=== PATIENT | female | born 1950 | race Caucasian/White ===

== ENCOUNTER → 2023-10-22 07:55 | Outpatient (REF) | payer MEDICARE, SELFPAY | LOC: DHSLP 07:55 | PROVIDERS: ATTENDING PHYSICIAN Internal Medicine; FAMILY PHYSICIAN Family Medicine | DX: G47.33 Obstructive sleep apnea (adult) (pediatric) (principal) | CPT/HCPCS: 95800 ==

== ENCOUNTER → 2023-11-26 13:24 | Outpatient (REF) | payer MEDICARE, SELFPAY ==
[2023-11-26 14:05] LABS: % Basophils 0.4 % (0-2); % Eosinophils 2.8 % (0-6); % Immature Granulocytes 0.6 % (0-0.5); % Lymphocytes 8.6 % (20.5-51.1); % Monocytes 7.4 % (1.7-9.3); % Neutrophils 80.2 % (42.2-75.2); Absolute Eosinophils 0.3 10^3/uL (0-0.7); Absolute Immature Granulocytes 0.1 10^3/uL (0-0.05); Absolute Lymphocytes 0.8 10^3/uL (1.2-3.4); Absolute Monocytes 0.7 10^3/uL (0.1-0.6); Absolute Neutrophils 7.6 10^3/uL (1.4-6.5); Hematocrit 36.1 % (37.0-47.0); Hemoglobin 11.6 g/dL (12.0-16.0); Mean Corp Hgb Conc. 32.1 g/dL (33.0-37.0); Mean Corpuscular Hgb 31.4 pg (27.0-31.0); Mean Corpuscular Volume 97.8 fL (81.0-99.0); Mean Platelet Volume 9.7 fL (7.4-10.4); Nucleated Red Blood Cells % 0 %; Platelet Count 249 10^3/uL (130-400); Red Blood Cell Count 3.69 10^6/uL (4.20-5.40); Red Cell Dist. Width 13.8 % (11.5-14.5); White Blood Cell Count 9.5 10^3/uL (4.8-10.8)
== END ==
LOC: REG 13:24
PROVIDERS: ATTENDING PHYSICIAN Internal Medicine; FAMILY PHYSICIAN Family Medicine; REFERRING PHYSICIAN Nuclear Medicine Nuclear Cardiology
DX: J44.1 Chronic obstructive pulmonary disease with (acute) exacerbation (principal)
CPT/HCPCS: 36415; 85025

== ENCOUNTER 2024-04-07 18:21 | Observation (INO) | payer MEDICARE, SELFPAY ==
[2024-04-04 10:43] LABS: Hematocrit 33.4 % (37.0-47.0); Hemoglobin 10.6 g/dL (12.0-16.0); Mean Corp Hgb Conc. 31.7 g/dL (33.0-37.0); Mean Corpuscular Hgb 31.5 pg (27.0-31.0); Mean Corpuscular Volume 99.4 fL (81.0-99.0); Mean Platelet Volume 9.7 fL (7.4-10.4); Platelet Count 259 10^3/uL (130-400); Red Blood Cell Count 3.36 10^6/uL (4.20-5.40); Red Cell Dist. Width 15.5 % (11.5-14.5); White Blood Cell Count 9.5 10^3/uL (4.8-10.8)
[2024-04-04 10:45] LABS: Urine Albumin 3+ (Neg - Trace); Urine Bilirubin Negative (Negative); Urine Character Very Cloudy (Clear); Urine Color Yellow; Urine Glucose Negative (Negative); Urine Ketone Negative (Negative); Urine Leukocyte 2+ (Negative); Urine Nitrite Negative (Negative); Urine Occult Blood 4+ (Negative); Urine Urobilinogen Negative (Neg - 1+); Urine pH 6.5 (5.0-9.0)
[2024-04-04 10:52] LABS: INR 1.17; PT 14.7 Sec (11.4-14.6)
[2024-04-04 10:53] LABS: APTT 33.4 Sec (23.4-35.0)
[2024-04-04 11:17] LABS: Urine White Cell >100 /HPF (0-5)
[2024-04-04 11:36] LABS: Blood Urea Nitrogen 53 mg/dl (7-17); Calcium 9.1 mg/dl (8.4-10.2); Carbon Dioxide 8 mmol/L (22-30); Chloride 115 mmol/L (98-107); Glucose 119 mg/dl (70-99); Potassium 4.9 mmol/L (3.5-5.1); Sodium 137 mmol/L (135-145); eGFR 10.81
[2024-04-04 12:45] VITALS: BMI 49.9
--- NOTE | 2024-04-05 10:01 | PTCARENOTE ---
Creatinine 4.1; CO2 level 8; urine WBC's >100 all collected on 04/04/24; Belen at 's office was notified.
[2024-04-07] VITALS (21 sets, daily range): BP systolic 110–158; BP diastolic 49–74
[2024-04-07 11:42] LABS: Glucose - Point of Care 103 mg/dl (70-99)
[2024-04-07] MEDS: NORMOSOL-R 1000 IV (12:25)
[2024-04-07 15:45] LABS: Hemoglobin 9.8 g/dL (12.0-16.0); Mean Corp Hgb Conc. 31.6 g/dL (33.0-37.0); Mean Corpuscular Hgb 31.1 pg (27.0-31.0); Mean Corpuscular Volume 98.4 fL (81.0-99.0); Mean Platelet Volume 9.4 fL (7.4-10.4); Platelet Count 252 10^3/uL (130-400); Red Blood Cell Count 3.15 10^6/uL (4.20-5.40); Red Cell Dist. Width 15.5 % (11.5-14.5); White Blood Cell Count 9.3 10^3/uL (4.8-10.8)
[2024-04-07 15:50] LABS: Glucose - Point of Care 97 mg/dl (70-99)
[2024-04-07 16:05] LABS: Blood Urea Nitrogen 55 mg/dl (7-17); Calcium 8.7 mg/dl (8.4-10.2); Carbon Dioxide 14 mmol/L (22-30); Chloride 116 mmol/L (98-107); Estimated Creatinine Clearance 17 ml/min; Glucose 108 mg/dl (70-99); Potassium 4.9 mmol/L (3.5-5.1); Sodium 138 mmol/L (135-145); eGFR 11.84
[2024-04-07] MEDS: TYLENOL 1000 MG PO (16:09)
--- NOTE | 2024-04-07 16:33 | PTCARENOTE ---
Patient seen by Dr Villafana and will be admitted.Dr Villafana will reach out to hospitalist for admission orders. Sister made aware.
--- NOTE | 2024-04-07 16:56 | HPS.HSE ---
Family Physician
-
Family Physician: Elsie Grubbs
Chief Complaint
-
Impaired renal function and acidosis
History of Present Illness
74 y/o female with past medical history of cervical cancer with associated urinary obstruction s/p stents, chronic Kidney Disease, UTI, Hydronephrosis, Neurogenic Bladder, Chronic HFpEF, Hypertension, Type 2 Diabetes Mellitus, Hypothyroidism,
Cervical Cancer Stage 3 status radiation and chemotherapy, Colon Polyp, Family History of Cardiovascular Disease, Edema, Benign Cavernous Hemangioma, Shingles, Post-Herpetic Neuralgia, Arthritis, Gout, Leon Cyst, Anxiety, Depression, Morbid Obesity
and SHANTEL presented post-op after bilateral ureteral stent exchange earlier today Dr. Villafana. Dr. Villafana mentioned patient had chronic kidney disease with metabolic acidosis and would like the patient admitted because of metabolic acidosis. Other than
mild headache, patient denied any other significant symptoms at the time of admission.
Medical History
Past Medical History
Past Medical History: Reports Other (As per HPI above)
Past Surgical History: Reports Other (Colonoscopy. Ureteral Stents placement. Suprapubic Tube.)
Social History
Tobacco: Non-smoker
Alcohol: None
Drug: None
Family History
Family History: Not pertinent
Allergies / Home Medications
Allergies reflects when Allergies were last updated in [facility].
Home Medications with original date entered in [facility]
Allergy/Medication List:
Allergies
Allergy/AdvReac Type Severity Reaction Status Date / Time
No Known Allergies Allergy Verified 04/07/24 11:53
Home Medications
levothyroxine 88 mcg tablet 88 mcg PO DAILY AT 0700 Thyroid 12/18/21
ascorbic acid (vitamin C) 500 mg tablet (Vitamin C) 500 mg PO DAILY Supplement 02/26/22
biotin 10,000 mcg capsule 10,000 mcg PO DAILY Supplement 02/26/22
gabapentin 100 mg capsule 200 mg PO TID Neurological Condition 02/26/22
metoprolol succinate 50 mg tablet,extended release 24 hr 50 mg PO BID 04/27/22
nystatin 100,000 unit/gram topical powder 1 applic topical PRN PRN rash 04/27/22
ferrous sulfate 325 mg (65 mg iron) tablet 325 mg PO DAILY 07/30/22
Lactobacillus 40-Bifidobact 3-S.thermophilus 100 billion cell capsule (Probiotic) 1 cap PO DAILY 09/29/22
sodium bicarbonate 650 mg PO BID 04/07/24
Review of Systems
-
A 12 point ROS was completed and negative except as noted: Yes
Physical Exam
Vital Signs
Vital Signs
Temp Pulse Resp BP Pulse Ox
97.5 F 80 27 129/56 95
04/07/24 15:05 04/07/24 16:30 04/07/24 16:30 04/07/24 16:30 04/07/24 16:30
Physical Exam
General: No Apparent Distress, Comfortable and Conversant
HEENT: NormoCephalic and Moist mucous membranes
Respiratory: Clear
Cardiac: S1/S2 and Regular Rhythm
GI: Soft, Non Tender and Normal Bowel Sounds
Musculoskeletal: No Cyanosis
Skin: Warm and Dry
Neuro: Awake, Alert, AO x 3 and Nonfocal/grossly intact
Psych: Calm and Intact Judgment/Insight
Laboratory Results
-
04/07/24 15:26
04/07/24 15:26
Laboratory Results
PT 14.7 Sec (11.4-14.6) H 04/04/24 09:58
INR 1.17 04/04/24 09:58
APTT 33.4 Sec (23.4-35.0) 04/04/24 09:58
Impression/Plan
-
Assessment/Plan
Non Anion Gap Metabolic Acidosis
-Start Sterile Water with Sodium Bicarbonate 150 meq @ 80 cc/hr -- discussed this with on-call senior cisco network engineer and okay to start this IV fluid regimen for now and monitor BMP
-Continue patient's home sodium bicarbonate
Post-Op Bilateral Ureteral Stent Exchange for Chronic Urinary Tract Obstruction with Cervical Cancer
-Urology following, recommendations appreciated
Chronic Kidney Disease
-Monitor BMP
History of UTI
History of Hydronephrosis
History of Neurogenic Bladder
-Previously a suprapubic tube was placed
Chronic HFpEF
-Continue home Metoprolol Succinate
-Daily weights
-I's and O's
Hypertension
-Continue home Metoprolol Succinate 50 mg PO BID
Type 2 Diabetes Mellitus
-Insulin Sliding Scale with accuchecks
-Per patient request, patient can have a Regular Diet for now
Hypothyroidism
-Continue home Levothyroxine
Cervical Cancer Stage 3 status radiation and chemotherapy and bracytherapy
Colon Polyp
History of Pulmonary Nodule
Family History of Cardiovascular Disease
Edema
Benign Cavernous Hemangioma
Shingles
Post-Herpetic Neuralgia
Arthritis
Gout
Leon Cyst
Anxiety
Depression
Morbid Obesity
SHANTEL
DVT Prophylaxis: Heparin Subq
Code Status: Full Code
[2024-04-07] MEDS: SODIUM BICARBONATE 1150 MEQ IV (20:17)
[2024-04-07] MEDS: HEPARIN 5000 UNITS SC (20:22)
[2024-04-07] MEDS: TOPROL XL 50 MG PO (20:24)
[2024-04-07 21:42] LABS: Glucose - Point of Care 126 mg/dl (70-99)
[2024-04-07] MEDS: NEURONTIN 200 MG PO (21:53)
[2024-04-08 03:31] VITALS: BP 129/63
[2024-04-08] MEDS: SYNTHROID 88 MCG PO (05:37)
[2024-04-08 05:53] VITALS: BMI 49.7
[2024-04-08 07:05] VITALS: BP 131/52
[2024-04-08 07:37] LABS: Glucose - Point of Care 107 mg/dl (70-99)
[2024-04-08 07:39] LABS: Hematocrit 29.3 % (37.0-47.0); Hemoglobin 9.5 g/dL (12.0-16.0); Mean Corp Hgb Conc. 32.4 g/dL (33.0-37.0); Mean Corpuscular Hgb 31.9 pg (27.0-31.0); Mean Corpuscular Volume 98.3 fL (81.0-99.0); Mean Platelet Volume 9.7 fL (7.4-10.4); Platelet Count 240 10^3/uL (130-400); Red Blood Cell Count 2.98 10^6/uL (4.20-5.40); Red Cell Dist. Width 15.4 % (11.5-14.5)
[2024-04-08 07:57] LABS: Blood Urea Nitrogen 55 mg/dl (7-17); Calcium 8.1 mg/dl (8.4-10.2); Carbon Dioxide 15 mmol/L (22-30); Chloride 113 mmol/L (98-107); Estimated Creatinine Clearance 18 ml/min; Glucose 114 mg/dl (70-99); Magnesium 1.4 mg/dl (1.6-2.3); Potassium 4.7 mmol/L (3.5-5.1); Sodium 139 mmol/L (135-145); eGFR 12.63
[2024-04-08] MEDS: VISBIOME 1 CAP PO (08:38)
[2024-04-08] MEDS: TOPROL XL 50 MG PO ×2 (08:38→20:05)
[2024-04-08] MEDS: NEURONTIN 200 MG PO ×3 (08:38→21:55)
[2024-04-08] MEDS: HEPARIN 5000 UNITS SC ×2 (08:38→20:02)
[2024-04-08] MEDS: VITAMIN C 500 MG PO (08:38)
[2024-04-08] MEDS: FEOSOL 325 MG PO (08:39)
--- NOTE | 2024-04-08 08:48 | W.PN.HOSP.TC ---
Today's Communication/Plan
-
Continue treating metabolic acidosis
Replace low magnesium
Appreciate nephrology evaluation
Appreciate urology follow-up
Assessment / Plan
Assessment / Plan
Physical Exam
General: No Apparent Distress, Comfortable and Conversant
HEENT: Normocephalic and Moist mucous membranes
Respiratory: Clear
Cardiac: S1/S2 and Regular Rhythm
GI: Soft, Non Tender and Normal Bowel Sounds
Musculoskeletal: No Cyanosis
Skin: Warm and Dry
Neuro: Awake, Alert, AO x 3 and Nonfocal/grossly intact
Psych: Calm and Intact Judgment/Insight
Assessment/Plan
Non Anion Gap Metabolic Acidosis
-Continue Sterile Water with Sodium Bicarbonate 150 meq @ 80 cc/hr -- discussed this with on-call career representative and okay to start this IV fluid regimen for now and monitor BMP
-Hold home patient's sodium bicarbonate
Hypomagnesemia
-Ordered replacement on 04/08/24
-Recheck in the morning
Post-Op Bilateral Ureteral Stent Exchange for Chronic Urinary Tract Obstruction with Cervical Cancer
-Urology following, recommendations appreciated
Chronic Kidney Disease
-Monitor BMP
History of UTI
History of Hydronephrosis
History of Neurogenic Bladder
-Previously a suprapubic tube was placed
Chronic HFpEF
-Continue home Metoprolol Succinate
-Daily weights
-I's and O's
Hypertension
-Continue home Metoprolol Succinate 50 mg PO BID
Type 2 Diabetes Mellitus
-Patient mentioned she does not use any Insulin or any Diabetes medications at home
-Insulin Sliding Scale with accuchecks
-Per patient request, patient can have a Regular Diet for now
Hypothyroidism
-Continue home Levothyroxine
Cervical Cancer Stage 3 status radiation and chemotherapy and bracytherapy
Colon Polyp
History of Pulmonary Nodule
Family History of Cardiovascular Disease
Edema
Benign Cavernous Hemangioma
Shingles
Post-Herpetic Neuralgia
Arthritis
Gout
Leon Cyst
Anxiety
Depression
Morbid Obesity
SHANTEL
DVT Prophylaxis: Heparin Subq
Code Status: Full Code
Anticipated Discharge: Within 24 hours
Subjective/Interval History
-
Date of Service: April 08, 2024
Patient was seen and examined. She reported no fever, chest pain, shortness of breath or any other symptoms or complaints.
Objective Data
-
Labs:
Laboratory Results
04/08/24
06:45
WBC 9.0
Hgb 9.5 L
Hct 29.3 L
Plt Count 240
Sodium 139
Potassium 4.7
Chloride 113 H
Carbon Dioxide 15 L
BUN 55 H
Creatinine 3.6 H
Glucose 114 H
Calcium 8.1 L
Vital Signs:
Vital Signs
Temp Pulse Resp BP Pulse Ox
98.2 F 86 18 131/52 95
04/08/24 07:05 04/08/24 08:38 04/08/24 07:05 04/08/24 08:38 04/08/24 07:05
I&O
04/07/24 04/08/24 04/09/24
06:59 06:59 06:59
Intake Total 1580 / 1580
Output Total 2024
Balance -445 / -445
--- NOTE | 2024-04-08 09:47 | CON.ONC ---
Impression
Impression
- metabolic acidosis
- acute on chronic renal injury
- hx of cervical cancer s/p chemoradiation- 12/2021-02/2022
Plan
Plan
GISEL on CKD: pt initially had issues with recurrent GISEL at time of cervical cancer diagnosis due to obstruction from mass s/p bilateral ureteral stent placement at that time. She then had GISEL after tx complete with neurogenic bladder s/p supra-pubic
catheter. New GISEL w/ acidosis possibly due to stent obstruction +/- exacerbated by new medication as Farxigo can cause a ketoacidosis (without hyperglycemia). She had stent and catheter exchanged 04/07. Cr appears to be downtrending with IVFs.
- ordered CT A/P without contrast to ensure no new pelvic mass/adenopathy causing extrinsic compression to explain worsening renal function. denies vaginal discharge, bleeding or pelvic pain. Last pelvic exam in January unremarkable.
Anemia: hx of anemia at time of diagnosis due to bleeding then developed anemia during chemoradiation however hgb eventually normalized and had been stable at 11-12 range. drop now to 9.5 g/dl possibly reflection of worsening renal disease.
- check retic, iron studies, B12. replete deficiencies if present.
Cervical cancer: s/p chemoradiation february 2022 with CR. Surveillance to date without signs or symptoms of recurrence. routine imaging is not performed for cervical cancer after CR. will check CT A/P now to ensure no pelvic recurrence.
Patient History
History of Present Illness
Tori is a 74 yo F with hx of stage IIIC cervical cancer s/p chemoradiation 02/2022 with CR, in remission, bilateral ureteral obstruction s/p stents, urinary retention s.p suprapubic catheter who presented after stent exchange 04/07 with acute on
chronic renal injury and metabolic acidosis. Labs from 04/04 shows rise in Cr at 4.1 from most recent in my system of 1.98 in January, Carbon dioxide 8. Cr appears to be improving 3.6 today. Oncology consulted for hx of cervical cancer.
In regards to oncological hx, Tori was diagnosed in november 2021 when she was admitted to OSH with malaise, hematuria. imaging showed severe bilateral hydronephrosis extending down to the level of the uterine cervix with a lobulated mass measuring
7.6�6.7 cm within the uterine cervix. Minimal left perinephric fat stranding with mild perinephritic and urinary bladder edema, mildly enlarged left external iliac chain lymph node otherwise no metastatic adenopathy. she was seen by urology and
underwent bilateral ureteral stent placement. She was treated with up front chemoradiation which she completed in February 2022. Her post-tx PET was consistent with CR and she has been under surveillance since with pelvic exam every 3 months with
Tina. After completing treatment she developed issues with urinary retention thought to be from neurogenic bladder and had suprapubic catheter placed. She follows with Dr Reid from nephrology who started her on in February due to CKD and DM.
This was stopped ~ 1.[address] Reid noted rise in Cr. She notes feeling weak the week leading up to stent exchange. denies fevers, chills, pelvic pain, sob, chest pain, new back or bone pain
Past-Medical/Surgical History
- Stage III cervical cancer
- obstructive nephropathy s/p bilateral ureteral stents, suprapubic catheter
- type 2 DM
- obesity
- HTN
Patient Medication
�Medication �Instructions �Recorded �Confirmed �Last Taken �Type
levothyroxine 88 mcg tablet 88 mcg PO DAILY AT 0700 Thyroid 12/18/21 04/07/24 04/07/24 06:00 History
ascorbic acid (vitamin C) 500 mg 500 mg PO DAILY Supplement 02/26/22 04/07/24 1 Week Ago History
tablet (Vitamin C) ~03/31/24
biotin 10,000 mcg capsule 10,000 mcg PO DAILY Supplement 02/26/22 04/07/24 1 Week Ago History
~03/31/24
gabapentin 100 mg capsule 200 mg PO TID Neurological 02/26/22 04/07/24 04/07/24 08:00 History
Condition
metoprolol succinate 50 mg 50 mg PO BID 04/27/22 04/07/24 04/07/24 08:00 History
tablet,extended release 24 hr
nystatin 100,000 unit/gram topical 1 applic topical PRN PRN rash 04/27/22 04/07/24 1 Week Ago History
powder ~03/31/24
ferrous sulfate 325 mg (65 mg 325 mg PO DAILY 07/30/22 04/07/24 1 Week Ago History
iron) tablet ~03/31/24
Lactobacillus 40-Bifidobact 1 cap PO DAILY 09/29/22 04/07/24 1 Week Ago History
3-S.thermophilus 100 billion cell ~03/31/24
capsule (Probiotic)
sodium bicarbonate 650 mg PO BID 04/07/24 04/07/24 04/07/24 08:00 History
Active Medications
Generic Name Dose Route Start Last Admin
Trade Name Freq PRN Reason Stop Dose Admin
Ascorbic Acid 500 mg 04/08/24 08:00 04/08/24 08:38
Ascorbic Acid 500 Mg Tablet PO 05/06/24 07:59 500 mg
DAILY NATHAN Administration
Bisacodyl 10 mg 04/07/24 18:00
Bisacodyl 10 Mg Rectal Suppository RECTAL 05/05/24 17:59
[id number] PRN
constipation
Dextrose 12.5 grams 04/07/24 18:03
Dextrose 50% (0.5 Grams/Ml) 50 Ml Syringe IV 05/05/24 18:02
[id number] PRN
hypoglycemia
Protocol
Ferrous Sulfate 325 mg 04/08/24 08:00 04/08/24 08:39
Ferrous Sulfate 325 Mg Tablet PO 05/06/24 07:59 325 mg
DAILY NATHAN Administration
Gabapentin 200 mg 04/07/24 22:00 04/08/24 08:38
Gabapentin 100 Mg Capsule PO 05/05/24 21:59 200 mg
TID NATHAN Administration
Glucagon 1 mg 04/07/24 18:03
Glucagon 1 Mg Vial IM 05/05/24 18:02
PRN PRN
hypoglycemia
Protocol
Heparin Sodium 5,000 units 04/07/24 20:00 04/08/24 08:38
Heparin 5,000 Units/Ml 1 Ml Vial SC 05/05/24 19:59 5,000 units
Q12 NATHAN Administration
Hydromorphone HCl 0.25 mg 04/07/24 11:25
Hydromorphone 0.25 Mg/0.5 Ml Syringe IV 04/08/24 11:25
[id number] PRN
severe pain
Sodium Bicarbonate 150 meq/ 1,150 mls @ 80 mls/hr 04/07/24 18:00 04/07/24 20:17
Sterile Water IV 04/08/24 17:59 1,150 mls
[id number] NATHAN Administration
Insulin Aspart 0 units 04/08/24 07:30 04/08/24 08:37
Insulin Aspart Low Resistance 300 Units/3 Ml Pen.Injctr SC 05/06/24 07:29 Not Given
AC NATHAN
Protocol
Lactobacillus/Bifidobacterium 1 cap 04/08/24 08:00 04/08/24 08:38
Lactobac/Bifidobac (Visbiome) PO 05/06/24 07:59 1 cap
DAILY NATHAN Administration
Levothyroxine Sodium 88 mcg 04/08/24 06:00 04/08/24 05:37
Levothyroxine 88 Mcg Tablet PO 05/06/24 05:59 88 mcg
DAILY @ 0600 NATHAN Administration
Meperidine HCl 12.5 mg 04/07/24 11:25
Meperidine 25 Mg/Ml Injection IV 04/08/24 11:25
[id number] PRN
shivers
Metoprolol Succinate 50 mg 04/07/24 20:00 04/08/24 08:38
Metoprolol 50 Mg Extended Release Tablet PO 05/05/24 19:59 50 mg
BID NATHAN Administration
Miconazole Nitrate 0 applic 04/07/24 18:28
Miconazole Powder Bottle TOPICAL 05/05/24 18:27
BIDPRN PRN
rash
Morphine Sulfate 1 mg 04/07/24 11:25
Morphine 2 Mg/Ml Syringe IV 04/08/24 11:25
PACU-Q5MPRN PRN
moderate pain
Ondansetron HCl 4 mg 04/07/24 11:25
Ondansetron 4 Mg/2 Ml Vial IV 04/08/24 11:25
PACU-ONCEPRN PRN
nausea/vomiting
Polyethylene Glycol 17 grams 04/07/24 18:00
Polyethylene Glycol Powder 17 Grams Packet PO 05/05/24 17:59
DAILYPRN PRN
constipation
Prochlorperazine Edisylate 5 mg 04/07/24 11:25
Prochlorperazine 10 Mg/2 Ml Vial IV 04/08/24 11:25
PACU-ONCEPRN PRN
nausea/vomiting
Senna/Docusate Sodium 1 tablet 04/07/24 18:00
Docusate W/Senna (Cinthya-Colace) Tablet PO 05/05/24 17:59
BIDPRN PRN
constipation
Sodium Chloride 0 flush 04/07/24 06:00
Sodium Chloride 0.9% (Flush) Syringe IV 05/05/24 05:59
PER PROTOCOL NATHAN
Review of Systems
-
History Source: Patient
Constitutional: Reports Fatigue and Weakness; Denies Fever
Respiratory: Denies Cough or Trouble Breathing
Cardiac: Denies Chest Pain
GI: Denies Abdominal Pain, Nausea, Diarrhea, Constipated or Bloody Stools
: Denies Vaginal Discharge or Vaginal Bleeding
Neuro: Denies Dizzy or Headache
Physical Exam
-
General: Well Developed, Well Nourished, No Apparent Distress and Morbidly Obese
HEENT: Negative Jaundice
Cardiology: Normal Sinus Rhythm
Pulmonary: Clear
GI: Soft; Negative Distended
Musculoskeletal: No Edema
Neurology: Non Focal
Psych: Calm
Labs
Lab Results
WBC 9.0 10^3/uL (4.8-10.8) 04/08/24 06:45
RBC 2.98 10^6/uL (4.20-5.40) L 04/08/24 06:45
Hgb 9.5 g/dL (12.0-16.0) L 04/08/24 06:45
Hct 29.3 % (37.0-47.0) L 04/08/24 06:45
MCV 98.3 fL (81.0-99.0) 04/08/24 06:45
MCH 31.9 pg (27.0-31.0) H 04/08/24 06:45
MCHC 32.4 g/dL (33.0-37.0) L 04/08/24 06:45
RDW 15.4 % (11.5-14.5) H 04/08/24 06:45
Plt Count 240 10^3/uL (130-400) 04/08/24 06:45
MPV 9.7 fL (7.4-10.4) 04/08/24 06:45
Creatinine 3.6 mg/dL (0.6-1.0) H 04/08/24 06:45
Vital Signs
Vital Signs
Temp Pulse Resp BP Pulse Ox
98.2 F 86 18 131/52 95
04/08/24 07:05 04/08/24 08:38 04/08/24 07:05 04/08/24 08:38 04/08/24 07:05
[2024-04-08] MEDS: MAGNESIUM SULFATE 102 GRAMS IV (10:06)
[2024-04-08 10:42] LABS: Glucose - Point of Care 122 mg/dl (70-99)
--- NOTE | 2024-04-08 10:45 | CM ---
Initial assessment completed with patient who lives alone in a 1st floor 1 floor condo with ramp. She has a rollator which she uses and a SC and grab bars in bathroom. 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
through [employer]. They provide assist with chores and transport to appointments. No history of psychiatric hospitalizations. Pharmacy is [facility] on [address] in [place] and PCP is Dr. Elsie Grubbs. YING explained and signed. Anticipate no
needs at discharge.
[2024-04-08 11:00] VITALS: BP 130/52
[2024-04-08] MEDS: SODIUM BICARBONATE 1150 MEQ IV (11:10)
[2024-04-08 12:24] LABS: Glucose - Point of Care 98 mg/dl (70-99)
--- NOTE | 2024-04-08 12:47 | W.CON.NEPH ---
Consultation
-
Date/Time Consultation Requested: 04/07/2024 16:53
Date/Time Consultation Performed: 04/08/2024 12:47PM
Requesting Provider: Sameer Saenz
Performing Provider: Leonora Moran
Reason for Consultation: acidosis
Medical History
-
Chief Complaint: acidosis
History of Present Illness:
Ms. Gurrola is a 74YOF with PMH of T2DM, hypothyroidism, obesity, HTN, shingles, HFpEF, CKD IV, cervical cancer with associated urinary obstruction, chronic bilateral hydro with hx of percutaneous neph tubes and now stent placement, colonic polyps,
shingles c/b post herpetic neuralgia, morbid obesity who presents to the hospital post op after bilateral ureteral stent exchange. Patient was noted to have significant acidosis (has occurred in the past) and was admitted for management of this.
Nephrology is consulted for her acidosis
She is followed by Dr. Reid in the outpatient setting.
Past Medical History
cervical cancer with associated urinary obstruction s/p stents, chronic Kidney Disease, UTI, Hydronephrosis, Neurogenic Bladder, Chronic HFpEF, Hypertension, Type 2 Diabetes Mellitus, Hypothyroidism, Cervical Cancer Stage 3 status radiation and
chemotherapy, Colon Polyp, Family History of Cardiovascular Disease, Edema, Benign Cavernous Hemangioma, Shingles, Post-Herpetic Neuralgia, Arthritis, Gout, Leon Cyst, Anxiety, Depression, Morbid Obesity and SHANTEL
Past Medical History: Other
Past Surgical History: Other (Colonoscopy. Ureteral Stents placement. Suprapubic Tube)
Social History
Tobacco: Non-Smoker
Alcohol: Occasional
Drug: None
Living: With Family
Family History
Family History: Not Pertinent
Allergies / Home Medications
Allergy/AdvReac Type Severity Reaction Status Date / Time
No Known Allergies Allergy Verified 04/07/24 11:53
�Medication �Instructions �Recorded �Confirmed �Type
levothyroxine 88 mcg tablet 88 mcg PO DAILY AT 0700 Thyroid 12/18/21 04/07/24 History
ascorbic acid (vitamin C) 500 mg 500 mg PO DAILY Supplement 02/26/22 04/07/24 History
tablet (Vitamin C)
biotin 10,000 mcg capsule 10,000 mcg PO DAILY Supplement 02/26/22 04/07/24 History
gabapentin 100 mg capsule 200 mg PO TID Neurological 02/26/22 04/07/24 History
Condition
metoprolol succinate 50 mg 50 mg PO BID Heart 04/27/22 04/07/24 History
tablet,extended release 24 hr Disease/Condition
nystatin 100,000 unit/gram topical 1 applic topical PRN PRN rash 04/27/22 04/07/24 History
powder
ferrous sulfate 325 mg (65 mg 325 mg PO DAILY Supplement 07/30/22 04/07/24 History
iron) tablet
Lactobacillus 40-Bifidobact 1 cap PO DAILY 09/29/22 04/07/24 History
3-S.thermophilus 100 billion cell
capsule (Probiotic)
sodium bicarbonate 650 mg PO BID 04/07/24 04/07/24 History
Review of Systems
-
History Source: Patient
All other systems: Negative unless noted
Physical Exam
Vital Signs
Vital Signs
Temp Pulse Resp BP Pulse Ox
98.7 F 79 18 130/52 94
04/08/24 11:00 04/08/24 11:00 04/08/24 11:00 04/08/24 11:00 04/08/24 11:00
Lab Results
WBC 9.0 10^3/uL (4.8-10.8) 04/08/24 06:45
RBC 2.98 10^6/uL (4.20-5.40) L 04/08/24 06:45
Hgb 9.5 g/dL (12.0-16.0) L 04/08/24 06:45
Hct 29.3 % (37.0-47.0) L 04/08/24 06:45
Plt Count 240 10^3/uL (130-400) 04/08/24 06:45
Sodium 139 mmol/L (135-145) 04/08/24 06:45
Potassium 4.7 mmol/L (3.5-5.1) 04/08/24 06:45
Chloride 113 mmol/L (98-107) H 04/08/24 06:45
Carbon Dioxide 15 mmol/L (22-30) L 04/08/24 06:45
BUN 55 mg/dl (7-17) H 04/08/24 06:45
Creatinine 3.6 mg/dL (0.6-1.0) H 04/08/24 06:45
eGFR 12.63 04/08/24 06:45
Glucose 114 mg/dl (70-99) H 04/08/24 06:45
Calcium 8.1 mg/dl (8.4-10.2) L 04/08/24 06:45
Physical Exam
General: AOx3, No Distress and Nontoxic
HEENT: PERRL, EOMI, Anicteric, Conjunctivae Clear, Ear/Nose Intact, Hearing Normal, Oropharynx Clear/Moist, Dentition Intact, Facial Symmetry, Neck Supple, Trachea Midline, No JVD and No Thyromegaly
Respiratory: Clear, Normal Excursion and Nonlabored Respirations
Cardiac: S1/S2, Regular Rate/Rhythm and No Edema
Breast: Deferred by me
Abdomen: Soft, Nontender, Nondistended, Normal Bowel Sounds and No Hepatosplenomegaly
Rectal: Deferred by Provider
Genito-urinary: Turbid Urine
Musculoskeletal: No Clubbing, No Cyanosis and No Edema
Skin: No Rash, Warm, Dry, No Clubbing, No Cyanosis, Normal Turgor and No Bruising
Neuro: Nonfocal/Grossly Intact
Hematologic/Lymphatic: No Cervical Lymphadenopathy
Psych: Mood/afflect pleasant, Insight/judgement good and Appropriate
Data Reviewed
-
Radiology: Report Reviewed by me (retrograde pyelogram completed. Fluoroscopic guided exchange of double-J ureteral stents, as above.) and Discussed with Patient
Labs: Labs Reviewed by me and Discussed with Physician
Old Records: Reviewed
Assessment/Plan
-
Assessment:
- metabolic acidosis
- s/p stent exchange
- HTN
- DM2
- HFpEF
Plan:
- continue IV sodium bicarb to correct acidosis
- bicarb deficit of atleast 464, will take a while to correct with just IVF
- give an amp of bicarb today
- Cr improving with fluids and stnet exchange
- follow BMP
- monitor I/Os
[2024-04-08 13:00] LABS: Reticulocyte Count 1.8 % (0.4-2.8)
[2024-04-08] MEDS: SODIUM BICARBONATE 50 MEQ IV (13:08)
--- NOTE | 2024-04-08 13:09 | W.PN.URO.CBU ---
Today's Communication / Plan
-
Trend renal function
Nephrology recs
CT pending
Assessment / Plan
-
74F with neurogenic bladder, urinary retention, and bilateral ureteral obstruction s/p pelvic radiation
Managed with suprapubic tube and bilateral metal ureteral stents
Recently worsening renal function
admitted for metabolic acidosis following bilateral stent placement and bladder botox, bladder biopsy
- Renal function improving some post stent exchange. R ureter especially seemed obstructed at time of change
- Maintain SP tube
- Will eval persistent hydro on CT ordered by oncology
- Bladder wall papillary changes likely inflammatory due to stents, but took a biopsy 04/07 - path pending
Diagnosis
-
Date of Service: April 08, 2024
-
Patient Diagnosis:
Bilateral ureteral obstruction
Neurogenic bladder with reflux s/p suprapubic tube
GISEL on CKD
Metabolic acidosis
Post Op Day:
Subjective
-
No events
Objective
-
Vital Signs
Temp Pulse Resp BP Pulse Ox
98.7 F 79 18 130/52 94
04/08/24 11:00 04/08/24 11:00 04/08/24 11:00 04/08/24 11:00 04/08/24 11:00
Intake and Output
04/07/24 04/08/24 04/09/24
06:59 06:59 06:59
Intake Total 1580 / 1580
Output Total 2024
Balance -445 / -445
Intake:
Oral fluids 520 / 520
IV fluids (Total) 1060 / 1060
Noemosol 100 / 100
Output:
Suprapubic output 2024
Laboratory Results
04/08/24 06:45
04/08/24 06:45
Physical Exam
-
General - well developed, well nourished, no acute distress
Chest - clear
Abdomen - soft, non-tender, SPT in place mild hematuria
Skin - warm & dry with no rash
Neuro - AOx3, no motor deficits
Extremities - no clubbing, no cyanosis, no edema
[2024-04-08] MEDS: OMNIPAQUE 50 ML PO (13:17)
[2024-04-08 14:10] LABS: Vitamin B12 554 pg/ml (239-931)
[2024-04-08 15:00] VITALS: BP 144/80
[2024-04-08 15:00] LABS: Total Iron Binding Capacity 183 ug/dl (265-497)
[2024-04-08 16:47] LABS: Glucose - Point of Care 120 mg/dl (70-99)
[2024-04-08 18:27] VITALS: BMI 49.7
[2024-04-08 19:44] VITALS: BP 138/63
[2024-04-08 21:18] LABS: Glucose - Point of Care 119 mg/dl (70-99)
[2024-04-08 23:24] VITALS: BP 131/67
[2024-04-09 03:27] VITALS: BP 129/61
[2024-04-09] MEDS: SYNTHROID 88 MCG PO (05:31)
[2024-04-09] MEDS: TYLENOL 650 MG PO (05:31)
[2024-04-09 06:00] VITALS: BMI 49.6
[2024-04-09 06:49] LABS: Hematocrit 28.6 % (37.0-47.0); Hemoglobin 9.3 g/dL (12.0-16.0); Mean Corp Hgb Conc. 32.5 g/dL (33.0-37.0); Mean Corpuscular Hgb 31.3 pg (27.0-31.0); Mean Corpuscular Volume 96.3 fL (81.0-99.0); Mean Platelet Volume 9.7 fL (7.4-10.4); Platelet Count 232 10^3/uL (130-400); Red Blood Cell Count 2.97 10^6/uL (4.20-5.40); Red Cell Dist. Width 15.2 % (11.5-14.5); White Blood Cell Count 8.1 10^3/uL (4.8-10.8)
[2024-04-09 07:12] LABS: Blood Urea Nitrogen 51 mg/dl (7-17); Calcium 8.3 mg/dl (8.4-10.2); Carbon Dioxide 21 mmol/L (22-30); Chloride 110 mmol/L (98-107); Estimated Creatinine Clearance 20 ml/min; Glucose 109 mg/dl (70-99); Magnesium 1.4 mg/dl (1.6-2.3); Potassium 4.4 mmol/L (3.5-5.1); Sodium 139 mmol/L (135-145); eGFR 14.55
[2024-04-09 07:28] LABS: Glucose - Point of Care 121 mg/dl (70-99)
[2024-04-09 07:42] VITALS: BP 137/62
[2024-04-09] MEDS: FEOSOL 325 MG PO (09:07)
[2024-04-09] MEDS: VITAMIN C 500 MG PO (09:07)
[2024-04-09] MEDS: HEPARIN 5000 UNITS SC (09:07)
[2024-04-09] MEDS: VISBIOME 1 CAP PO (09:07)
[2024-04-09] MEDS: TOPROL XL 50 MG PO (09:07)
[2024-04-09] MEDS: NEURONTIN 200 MG PO ×2 (09:07→15:49)
--- NOTE | 2024-04-09 09:36 | W.PN.URO.CBU ---
Today's Communication / Plan
-
Follow up 4 weeks for tube change
Will repeat BMP prior
Assessment / Plan
-
74F with neurogenic bladder, urinary retention, and bilateral ureteral obstruction s/p pelvic radiation
Managed with suprapubic tube and bilateral metal ureteral stents
Recently worsening renal function
admitted for metabolic acidosis following bilateral stent placement and bladder botox, bladder biopsy
- Renal function improving some post stent exchange. R ureter especially seemed obstructed at time of change
- Maintain SP tube
- CT ordered by oncology showed persistent bilateral hydronephrosis, though renal function improving. Discussed again today with patient she may need to go back to nephrostomy tubes, but okay to monitor for now and see where creatinine nadirs
- Bladder wall papillary changes likely inflammatory due to stents, but took a biopsy 04/07 - path pending
Stable for discharge from standpoint
Follow up 4 weeks for suprapubic tube change and repeat BMP prior
Diagnosis
-
Date of Service: April 09, 2024
-
Patient Diagnosis:
Bilateral ureteral obstruction
Neurogenic bladder with reflux s/p suprapubic tube
GISEL on CKD
Metabolic acidosis
Post Op s/p ureteral stent exchange, bladder botox, bladder biopsy
Subjective
-
Feeling better today
labs improved
Objective
-
Vital Signs
Temp Pulse Resp BP Pulse Ox
98.5 F 81 18 137/62 92
04/09/24 07:42 04/09/24 07:42 04/09/24 07:42 04/09/24 09:07 04/09/24 07:42
Intake and Output
04/08/24 04/09/24 04/10/24
06:59 06:59 06:59
Intake Total 1580 / 1580 1200 / 1200
Output Total 2024 3225 / 3225
Balance -445 / -445 -2024
Intake:
Oral fluids 520 / 520 1200 / 1200
IV fluids (Total) 1060 / 1060
Noemosol 100 / 100
Output:
Urine, Voided 1374 / 137
Suprapubic output 2024 1850 / 185
Other:
Number of unmeasured liquid
stools
Rectum 2
Laboratory Results
04/09/24 05:48
04/09/24 05:48
Physical Exam
-
General - well developed, well nourished, no acute distress
Chest - clear
Abdomen - soft, non-tender
SPT in place, clear urine
Rectal - normal
Skin - warm & dry with no rash
[2024-04-09] MEDS: MAGNESIUM SULFATE 50 IV (10:30)
--- NOTE | 2024-04-09 10:32 | W.PN.HOSP.TC ---
Today's Communication/Plan
-
Okay for discharge today, as discussed and agreed with oncologist, urologist and v[facility] cardiovascular service line
IV Magnesium this morning
Recheck magnesium this afternoon and if level is okay, can discharge
Assessment / Plan
Assessment / Plan
Physical Exam
General: Not in acute distress
HEENT: Normocephalic and Moist mucous membranes
Respiratory: Clear to Auscultation Bilaterally
Cardiac: S1/S2 and Regular Rhythm
GI: Soft, Non Tender and Normal Bowel Sounds
Skin: Warm and Dry
Neuro: Awake, Alert, AO x 3 and Nonfocal/grossly intact
Psych: Calm and Intact Judgment/Insight

CT Abdomen/Pelvis Without IV Contrast (as per radiologist's report)
IMPRESSION:
1).There is severe bilateral hydronephrosis despite bilateral double-J ureteral stents which appear to be in satisfactory position with their proximal loops coiled in the pelvicalyceal systems and distal loops coiled in the urinary bladder
There is a suprapubic catheter in the nondistended urinary bladder
2). Stable 5 mm pulmonary nodule at the posterior right lung base
3). Multilevel lumbar degenerative disc disease
4). Stable 1.5 cm left adrenal mass consistent with adrenal adenoma

Assessment/Plan
Metabolic Acidosis - RESOLVED
-Status post Sterile Water with Sodium Bicarbonate 150 meq @ 80 cc/hr -- discussed this with on-call vp cardiovascular service line and okay to start this IV fluid regimen for now and monitor BMP
-Resume home patient's sodium bicarbonate
Hypomagnesemia
-Ordered replacement on 04/08/24
-Still 1.4 on 04/09/24 morning
-Ordered additonal IV Magnesium
-Will likely need PO Magnesium on discharge
Post-Op Bilateral Ureteral Stent Exchange for Chronic Urinary Tract Obstruction with Cervical Cancer and Pelvic Radiation
-Urology following, recommendations appreciated
Chronic Kidney Disease
-Monitor BMP
History of UTI
History of Hydronephrosis
Neurogenic Bladder
-Continue suprapubic tube
-Follow-up with urology
Chronic HFpEF
-Continue home Metoprolol Succinate
-Daily weights
-I's and O's
Hypertension
-Continue home Metoprolol Succinate 50 mg PO BID
Type 2 Diabetes Mellitus
-Patient mentioned she does not use any Insulin or any Diabetes medications at home
-Insulin Sliding Scale with accuchecks
-Per patient request, patient can have a Regular Diet for now
Hypothyroidism
-Continue home Levothyroxine
Normocytic Anemia
-Follow-up with control systems drafting officer/oncologist
-Recheck Vitamin B12, Iron Studies, Retic count
Cervical Cancer Stage 3 status radiation and chemotherapy and bracytherapy
Colon Polyp
History of Pulmonary Nodule
Family History of Cardiovascular Disease
Edema
Benign Cavernous Hemangioma
Shingles
Post-Herpetic Neuralgia
Arthritis
Gout
Leon Cyst
Anxiety
Depression
Morbid Obesity
SHANTEL
DVT Prophylaxis: Heparin Subq
Code Status: Full Code
More than 30 minutes spent in discharge including
Final examination of the patient
Summarizing hospital stay
Instructions for continuing care to all relevant caregivers
Preparation of discharge records, prescriptions, and referral forms
Total time spent (in minutes): 38
Anticipated Discharge: Today
Subjective/Interval History
-
Date of Service: April 09, 2024
Patient was seen and examined. She reported no pain or any other symptoms/complaints. She stated that she really wants to go home today.
Objective Data
-
Labs:
Laboratory Results
04/09/24
05:48
WBC 8.1
Hgb 9.3 L
Hct 28.6 L
Plt Count 232
Sodium 139
Potassium 4.4
Chloride 110 H
Carbon Dioxide 21 L
BUN 51 H
Creatinine 3.2 H
Glucose 109 H
Calcium 8.3 L
Vital Signs:
Vital Signs
Temp Pulse Resp BP Pulse Ox
98.5 F 81 18 137/62 92
04/09/24 07:42 04/09/24 07:42 04/09/24 07:42 04/09/24 09:07 04/09/24 07:42
I&O
04/08/24 04/09/24 04/10/24
06:59 06:59 06:59
Intake Total 1580 / 1580 1200 / 1200
Output Total 2024 / 3224
Balance -445 / -445 -2024
--- NOTE | 2024-04-09 11:12 | W.PN.ONC2 ---
Today's Communication / Plan
-
- mild improvement in Cr today. will follow up with nephrology, urology outpt
- CT A/P without evidence of cancer recurrence, reviewed with pt.
- ok for d/c.
Impression
Impression
- metabolic acidosis
- acute on chronic renal injury
- hx of cervical cancer s/p chemoradiation- 12/2021-02/2022
Plan
Plan
GISEL on CKD: pt initially had issues with recurrent GISEL at time of cervical cancer diagnosis due to obstruction from mass s/p bilateral ureteral stent placement at that time. She then had GISEL after tx complete with neurogenic bladder s/p supra-pubic
catheter. New GISEL w/ acidosis possibly due to stent obstruction +/- exacerbated by new medication as Farxigo can cause a ketoacidosis (without hyperglycemia). She had stent and catheter exchanged 04/07. Cr appears to be downtrending with IVFs.
- CT A/P without contrast without c/f malignancy recurrence. persistent bilateral hydronephrosis despite stents noted. Pt is very reluctant to PCNs (had prior). Plan to continue to monitor as Cr does seem to be improving.
Anemia: hx of anemia at time of diagnosis due to bleeding then developed anemia during chemoradiation however hgb eventually normalized and had been stable at 11-12 range. drop now to 9.5 g/dl possibly reflection of worsening renal disease.
- work-up c/w anemia of inflammation with high ferritin. B12, folate normal. continue to monitor outpt.
Cervical cancer: s/p chemoradiation february 2022 with CR. Surveillance to date without signs or symptoms of recurrence. routine imaging is not performed for cervical cancer after CR. CT A/P w/ no pelvic recurrence.
- routine follow up scheduled with me in office.
Subjective/Objective
Chief Complaint
GISEL on CKD, hx of cervical cancer
Subjective
pt with no new complaints today. Denies fevers, chills. He has good outpt from supra-pubic tube.
Vital Signs:
Vital Signs
Temp Pulse Resp BP Pulse Ox
98.5 F 81 18 137/62 92
04/09/24 07:42 04/09/24 07:42 04/09/24 07:42 04/09/24 09:07 04/09/24 07:42
Lab Results:
Laboratory Data
WBC 8.1 10^3/uL (4.8-10.8) 04/09/24 05:48
Hgb 9.3 g/dL (12.0-16.0) L 04/09/24 05:48
Plt Count 232 10^3/uL (130-400) 04/09/24 05:48
PT 14.7 Sec (11.4-14.6) H 04/04/24 09:58
INR 1.17 04/04/24 09:58
APTT 33.4 Sec (23.4-35.0) 04/04/24 09:58
eGFR 14.55 04/09/24 05:48
Physical Exam
HEENT: No Jaundice
Cardiology: Normal Sinus Rhythm
Pulmonary: Clear
GI: Soft; No Distended
Neuro: Non Focal
Review of Systems
Review of Systems
Constitutional: Denies Fever or Fatigue
Respiratory: Denies Dyspnea
Gastrointestinal: Denies Nausea/Vomiting
Orders
Orders
Orders From Last 24 Hours
04/08/24 12:09
CT Abd/pelvis Wo Iv Cont Routine
04/08/24 12:45
Ferritin Routine
Reticulocyte Count Routine
Total Iron Binding Routine
Vitamin B12 Routine
Iohexol [Omnipaque] 50 ml PO ONCE@1245 ONE
[2024-04-09 11:22] VITALS: BP 104/63
--- NOTE | 2024-04-09 11:33 | W.PN.NEPH.PH ---
Today's Communication / Plan
-
- for dc
Assessment/Plan
-
Assessment:
- metabolic acidosis
- s/p stent exchange
- HTN
- DM2
- HFpEF
Plan:
- d/c bicarb gtt
- she is almost at bicarb goal of 22
- please discharge with 1300mg TID of bicarb
- Cr improving with fluids and stent exchange
- follow BMP with plans for BMP on Wednesday for Dr. Reid
- monitor I/Os
-
-
Date of Service: April 09, 2024
CC / HPI / ROS
-
Chief Complaint:
acidosis
History of Present Illness:
metabolic acidosis in the setting of CKD
GISEL
Review of Systems:
acidosis improved
Cr improving
Labs
-
Labs:
WBC 8.1 10^3/uL (4.8-10.8) 04/09/24 05:48
RBC 2.97 10^6/uL (4.20-5.40) L 04/09/24 05:48
Hgb 9.3 g/dL (12.0-16.0) L 04/09/24 05:48
Hct 28.6 % (37.0-47.0) L 04/09/24 05:48
Plt Count 232 10^3/uL (130-400) 04/09/24 05:48
Sodium 139 mmol/L (135-145) 04/09/24 05:48
Potassium 4.4 mmol/L (3.5-5.1) 04/09/24 05:48
Chloride 110 mmol/L (98-107) H 04/09/24 05:48
Carbon Dioxide 21 mmol/L (22-30) L 04/09/24 05:48
BUN 51 mg/dl (7-17) H 04/09/24 05:48
Creatinine 3.2 mg/dL (0.6-1.0) H 04/09/24 05:48
eGFR 14.55 04/09/24 05:48
Glucose 109 mg/dl (70-99) H 04/09/24 05:48
Calcium 8.3 mg/dl (8.4-10.2) L 04/09/24 05:48
Physical Exam
-
Vital Signs:
Vital Signs
Temp Pulse Resp BP Pulse Ox
98.0 F 78 18 104/63 94
04/09/24 11:22 04/09/24 11:22 04/09/24 11:22 04/09/24 11:22 04/09/24 11:22
Cardiovascular:: Regular rate and rhythm
Respiratory:: Bilateral: CTA
Lung Excursion:: Normal
Abdomen:: Nontender and Soft
Bowel Sounds:: Normal
Extremity Edema:: +1: Bilateral:
Anderson Catheter: Yes
[2024-04-09 12:07] VITALS: BP 131/67; BP 143/66; PULSE 74; O2SAT 94
[2024-04-09 12:22] LABS: Glucose - Point of Care 114 mg/dl (70-99)
[2024-04-09 14:28] LABS: Magnesium 1.9 mg/dl (1.6-2.3)
--- NOTE | 2024-04-09 14:46 | CHAP ---
Ms. Gurrola was in good spirits during our visit at 9:45 today. Emotional and spiritual support provided.
--- NOTE | 2024-04-09 15:12 | W.DS.TRANS ---
DC Summary - Net [employer]
-
Discharge Instructions:
Discharge Diagnosis/Procedures Metabolic Acidosis - RESOLVED
Hypomagnesemia
Post-Op Bilateral Ureteral Stent Exchange for
Chronic Urinary Tract Obstruction with Cervical
Cancer and Pelvic Radiation
Chronic Kidney Disease
History of Urinary Tract Infection
History of Hydronephrosis
Neurogenic Bladder
Chronic HFpEF
Hypertension
Type 2 Diabetes Mellitus
Hypothyroidism
Normocytic Anemia
Cervical Cancer Stage 3 status radiation and
chemotherapy and brachytherapy
Colon Polyp
History of Pulmonary Nodule
Family History of Cardiovascular Disease
Edema
Benign Cavernous Hemangioma
Shingles
Post-Herpetic Neuralgia
Arthritis
Gout
Elon Cyst
Anxiety
Depression
Morbid Obesity
Obstructive Sleep Apnea
Diet Diabetic, Carb Controlled,Low Sodium,Low Fiber,
Low Cholesterol,Low Fat,Restrict fluids to 64 oz
Activity As tolerated
Blood Work Recheck CBC, BMP and Magnesium in 2 days from
now with your it systems analyst, Dr. Reid
Specialty Instructions Weigh Daily
Instructions: Hypomagnesemia
Stand-Alone Forms:
Changes to Home Medications: Yes
Discharge Medications:
DC Medications w/original date entered in [employer]
levothyroxine 88 mcg tablet 88 mcg PO DAILY AT 0700 Thyroid 12/18/21
ascorbic acid (vitamin C) 500 mg tablet (Vitamin C) 500 mg PO DAILY Supplement 02/26/22
biotin 10,000 mcg capsule 10,000 mcg PO DAILY Supplement 02/26/22
gabapentin 100 mg capsule 200 mg PO TID Neurological Condition 02/26/22
metoprolol succinate 50 mg tablet,extended release 24 hr 50 mg PO BID Heart Disease/Condition 04/27/22
nystatin 100,000 unit/gram topical powder 1 applic topical PRN PRN rash 04/27/22
ferrous sulfate 325 mg (65 mg iron) tablet 325 mg PO DAILY Supplement 07/30/22
Lactobacillus 40-Bifidobact 3-S.thermophilus 100 billion cell capsule (Probiotic) 1 cap PO DAILY 09/29/22
sodium bicarbonate 325 mg tablet 1,300 mg (4 x 325 mg) PO TID #360 tabs 04/09/24
Home Medication Changes
Your sodium bicarbonate has been increased to 1300 mg TID (new prescription has been sent to your pharmacy)
Pending Results: Yes
Additional Pending Results:
Follow-up urologic biopsy results
Total time spent discharging patient (in min): 38
--- NOTE | 2024-04-13 13:01 | W.DCSUMMARY ---
Discharge Summary
Discharge Data
Date of Admission: 04/07/24
Date of Discharge: 04/09/24
Total time spent discharging patient (in min): 38
-
Pending Results: Yes
Hospital Course
74 y/o female with past medical history of cervical cancer with associated urinary obstruction s/p stents, chronic Kidney Disease, UTI, Hydronephrosis, Neurogenic Bladder, suprapubic urinary tube, Chronic HFpEF, Hypertension, Type 2 Diabetes
Mellitus, Hypothyroidism, Cervical Cancer Stage 3 status radiation and chemotherapy, Colon Polyp, Family History of Cardiovascular Disease, Edema, Benign Cavernous Hemangioma, Shingles, Post-Herpetic Neuralgia, Arthritis, Gout, Leon Cyst, Anxiety,
Depression, Morbid Obesity and SHANTEL presented post-op after bilateral ureteral stent exchange with Dr. Villafana. Dr. Villafana mentioned patient had chronic kidney disease with metabolic acidosis and would like the patient admitted because of metabolic
acidosis.
Patient was started on bicarbonate intravenous fluids and nephrology was consulted. Patient also received an amp of bicarbonate. Patient's magnesium was replaced. Oncology was consulted given patient's history of cervical cancer. Patient had CT
imaging done, and was stable for discharge after discussion with nephrology, oncology and urology. Patient also had acute renal failure which improved.
Discharge Plan
-
Patient Disposition: Home (Routine Discharge)
Discharge Diagnosis/Procedures: Metabolic Acidosis - RESOLVED
Hypomagnesemia
Post-Op Bilateral Ureteral Stent Exchange for Chronic Urinary Tract Obstruction with Cervical Cancer and Pelvic Radiation
Chronic Kidney Disease
History of Urinary Tract Infection
History of Hydronephrosis
Neurogenic Bladder
Chronic HFpEF
Hypertension
Type 2 Diabetes Mellitus
Hypothyroidism
Normocytic Anemia
Cervical Cancer Stage 3 status radiation and chemotherapy and brachytherapy
Colon Polyp
History of Pulmonary Nodule
Family History of Cardiovascular Disease
Edema
Benign Cavernous Hemangioma
Shingles
Post-Herpetic Neuralgia
Arthritis
Gout
Leon Cyst
Anxiety
Depression
Morbid Obesity
Obstructive Sleep Apnea
Condition: Good
Diet: Low Fat, Low Cholesterol, Low Fiber, Low Sodium, Diabetic, Carb Controlled and Restrict fluids to 64 oz
Activity: As tolerated
Blood Work: Recheck CBC, BMP and Magnesium in 2 days from now with your poultry scientist, Dr. Reid
Specialty Instructions: Weigh Daily- Call MD for wt gain/loss 3 lbs overnight/5 lbs in 1 week
Activity Restrictions/Additional Instructions:
-Follow-up with your interactive media marketing specialist/oncologist who can recheck your levels of Vitamin B12, Iron Studies, Reticulocyte count
-Follow-up with your poultry scientist Dr. eRid by Thursday April 11, 2024 to recheck your Basic Metabolic Panel
Instructions: Hypomagnesemia
Referrals:
Elsie Grubbs MD [Family Provider] - in less than 1 week
()
Wayne Reid MD [Active] - in one to two days (Hospital Follow-up of Metabolic Acidosis. Needs repeat BMP checked.)
Erick Villafana MD [Active] - in three to four weeks
Additional Discharge Medication Instructions: Your sodium bicarbonate has been increased to 1300 mg TID (new prescription has been sent to your pharmacy)
Prescriptions:
New
sodium bicarbonate 325 mg tablet
1,300 mg PO TID Qty: 360 1RF
Continued
levothyroxine 88 MCG tablet
88 mcg PO DAILY AT 0700
ascorbic acid (vitamin C) [Vitamin C] 500 MG tablet
500 mg PO DAILY
biotin 10,000 MCG capsule
10,000 mcg PO DAILY
gabapentin 100 MG capsule
200 mg PO TID
metoprolol succinate 50 mg Tablet Extended Release 24 Hr
50 mg PO BID
nystatin 100,000 unit/gram Powder
1 applic TOPICAL PRN PRN (Reason: rash)
ferrous sulfate 325 mg (65 mg iron) Tablet
325 mg PO DAILY
Probiotic 100 billion cell Capsule
1 cap PO DAILY
Discontinued
sodium bicarbonate
650 mg PO BID
Discharge Orders:
Discharge Patient (As Directed); Ordered 04/09/24
Ordered By: Sameer Saenz
Discharge Date and Time
Discharge Date/Time: 04/09/24 16:09
Print Language: FRISIAN
== END 2024-04-09 16:09 | disposition home or self-care (01) ==
LOC: 2 NORTH 18:21
PROVIDERS: Urology; ADMITTING PHYSICIAN Hospitalist; CONSULT PHYSICIAN Student in an Organized Health Care Education/Training Program; FAMILY PHYSICIAN Family Medicine; OTHER PHYSICIAN Internal Medicine Hematology & Oncology
DX: N13.6 Pyonephrosis (principal); N31.9 Neuromuscular dysfunction of bladder, unspecified; N17.9 Acute kidney failure, unspecified; E87.20 Acidosis, unspecified; N13.8 Other obstructive and reflux uropathy; E11.22 Type 2 diabetes mellitus with diabetic chronic kidney disease; C53.9 Malignant neoplasm of cervix uteri, unspecified; N18.4 Chronic kidney disease, stage 4 (severe); M19.90 Unspecified osteoarthritis, unspecified site; F32.A Depression, unspecified; F41.9 Anxiety disorder, unspecified; M10.9 Gout, unspecified; G47.33 Obstructive sleep apnea (adult) (pediatric); E66.01 Morbid (severe) obesity due to excess calories; I13.0 Hypertensive heart and chronic kidney disease with heart failure and stage 1 through stage 4 chronic kidney disease, or unspecified chronic kidney disease; R91.1 Solitary pulmonary nodule; D64.9 Anemia, unspecified; M51.36 Other intervertebral disc degeneration, lumbar region; E27.9 Disorder of adrenal gland, unspecified; E83.42 Hypomagnesemia; D18.02 Hemangioma of intracranial structures; I50.32 Chronic diastolic (congestive) heart failure; E03.9 Hypothyroidism, unspecified; B02.29 Other postherpetic nervous system involvement; Z92.3 Personal history of irradiation; Z82.49 Family history of ischemic heart disease and other diseases of the circulatory system; Z87.19 Personal history of other diseases of the digestive system; Z68.42 Body mass index [BMI] 45.0-49.9, adult; Z79.890 Hormone replacement therapy; Z92.21 Personal history of antineoplastic chemotherapy; Z87.440 Personal history of urinary (tract) infections
CPT/HCPCS: 52287; 52332; 52204; 51102; 88305; 36415; 74176; 74420; 76000; 80048; 81003; 81015; 82607; 82728; 82962; 83550; 83735; 85027; 85045; 85610; 85730; 93005; 97162; C2617; G0378; J0585

== ENCOUNTER → 2024-06-13 09:16 | Outpatient (REF) | payer MEDICARE, SELFPAY | LOC: RCS 09:16 | PROVIDERS: ATTENDING PHYSICIAN Nuclear Medicine Nuclear Cardiology; FAMILY PHYSICIAN Family Medicine | DX: I50.32 Chronic diastolic (congestive) heart failure (principal) | CPT/HCPCS: 93306 ==

== ENCOUNTER → 2024-07-11 11:21 | Outpatient (REF) | payer MEDICARE, SELFPAY | LOC: WDC 11:21 | PROVIDERS: ATTENDING PHYSICIAN Family Medicine | DX: Z12.31 Encounter for screening mammogram for malignant neoplasm of breast (principal) | CPT/HCPCS: 77063; 77067 ==

== ENCOUNTER 2024-08-22 06:36 | Day surgery (SDC) | payer MEDICARE, SELFPAY ==
[2024-08-21 13:35] LABS: Hematocrit 42.7 % (37.0-47.0); Hemoglobin 13.6 g/dL (12.0-16.0); Mean Corp Hgb Conc. 31.9 g/dL (33.0-37.0); Mean Corpuscular Hgb 31.7 pg (27.0-31.0); Mean Corpuscular Volume 99.5 fL (81.0-99.0); Mean Platelet Volume 9.9 fL (7.4-10.4); Platelet Count 192 10^3/uL (130-400); Red Blood Cell Count 4.29 10^6/uL (4.20-5.40); Red Cell Dist. Width 13.5 % (11.5-14.5); White Blood Cell Count 8.3 10^3/uL (4.8-10.8)
[2024-08-21 14:16] VITALS: BMI 47.5
[2024-08-22] VITALS (7 sets, daily range): BP systolic 99–176; BP diastolic 60–89; BMI 47.5
[2024-08-22 08:01] LABS: Glucose - Point of Care 134 mg/dl (70-99)
[2024-08-22 10:20] LABS: Glucose - Point of Care 128 mg/dl (70-99)
== END 2024-08-22 11:33 | disposition home or self-care (01) ==
LOC: SDS 06:36
PROVIDERS: ATTENDING PHYSICIAN Urology; FAMILY PHYSICIAN Family Medicine
DX: N31.9 Neuromuscular dysfunction of bladder, unspecified (principal); N13.5 Crossing vessel and stricture of ureter without hydronephrosis; N30.40 Irradiation cystitis without hematuria; Y84.2 Radiological procedure and radiotherapy as the cause of abnormal reaction of the patient, or of later complication, without mention of misadventure at the time of the procedure
CPT/HCPCS: 52332; 52287; 36415; 82962; 85027; C2617; J0585

== ENCOUNTER 2025-01-23 06:02 | Day surgery (SDC) | payer MEDICARE, SELFPAY ==
--- NOTE | 2025-01-18 16:48 | PTCARENOTE ---
Abnormal ECG done 12/20/24, reviewed by Dr Alfaro, no further intervention requested.
[2025-01-19 10:53] LABS: % Basophils 0.4 % (0-2); % Eosinophils 2.5 % (0-6); % Immature Granulocytes 0.8 % (0-0.5); % Lymphocytes 8.4 % (20.5-51.1); % Monocytes 6.2 % (1.7-9.3); % Neutrophils 81.7 % (42.2-75.2); Absolute Eosinophils 0.2 10^3/uL (0-0.7); Absolute Immature Granulocytes 0.1 10^3/uL (0-0.05); Absolute Lymphocytes 0.8 10^3/uL (1.2-3.4); Absolute Monocytes 0.6 10^3/uL (0.1-0.6); Absolute Neutrophils 7.6 10^3/uL (1.4-6.5); Hematocrit 38.3 % (37.0-47.0); Hemoglobin 12.3 g/dL (12.0-16.0); Mean Corp Hgb Conc. 32.1 g/dL (33.0-37.0); Mean Corpuscular Hgb 31.4 pg (27.0-31.0); Mean Corpuscular Volume 97.7 fL (81.0-99.0); Mean Platelet Volume 9.8 fL (7.4-10.4); Nucleated Red Blood Cells % 0 %; Platelet Count 216 10^3/uL (130-400); Red Blood Cell Count 3.92 10^6/uL (4.20-5.40); Red Cell Dist. Width 14.3 % (11.5-14.5); White Blood Cell Count 9.3 10^3/uL (4.8-10.8)
[2025-01-19 11:23] LABS: Blood Urea Nitrogen 25 mg/dl (7-17); Carbon Dioxide 25 mmol/L (22-30); Chloride 105 mmol/L (98-107); Glucose 127 mg/dl (70-99); Potassium 4.1 mmol/L (3.5-5.1); Sodium 141 mmol/L (135-145); eGFR 29.02
[2025-01-19 13:26] VITALS: BMI 46.8
[2025-01-23] VITALS (12 sets, daily range): BP systolic 88–151; BP diastolic 43–84; BMI 46.8
[2025-01-23] MEDS: NORMOSOL-R/PLASMALYTE-A 1000 IV (07:13)
== END 2025-01-23 11:08 | disposition home or self-care (01) ==
LOC: SDS 06:02
PROVIDERS: ATTENDING PHYSICIAN Urology; FAMILY PHYSICIAN Family Medicine
DX: N13.5 Crossing vessel and stricture of ureter without hydronephrosis (principal); N31.9 Neuromuscular dysfunction of bladder, unspecified
CPT/HCPCS: 52332; 52287; 36415; 74420; 76000; 80048; 85025; C2617; J0585

== ENCOUNTER 2025-07-26 06:30 | Day surgery (SDC) | payer MEDICARE, SELFPAY ==
[2025-07-16 11:23] LABS: Hematocrit 37.6 % (37.0-47.0); Hemoglobin 11.9 g/dL (12.0-16.0); Mean Corp Hgb Conc. 31.6 g/dL (33.0-37.0); Mean Corpuscular Volume 99.5 fL (81.0-99.0); Platelet Count 233 10^3/uL (130-400); Red Cell Dist. Width 13.5 % (11.5-14.5)
[2025-07-16 11:38] LABS: Blood Urea Nitrogen 32 mg/dl (7-17); Calcium 9.2 mg/dl (8.4-10.2); Carbon Dioxide 25 mmol/L (22-30); Chloride 99 mmol/L (98-107); Glucose 114 mg/dl (70-99); Potassium 3.7 mmol/L (3.5-5.1); Sodium 136 mmol/L (135-145); eGFR 18.55
[2025-07-16 14:09] VITALS: BMI 50.8
[2025-07-26 10:39] VITALS: BP 126/58; BMI 50.8
[2025-07-26] MEDS: NORMOSOL-R/PLASMALYTE-A 1000 IV (10:59)
[2025-07-26 11:08] LABS: Glucose - Point of Care 104 mg/dl (70-99)
[2025-07-26 13:37] VITALS: BP 126/58; BP 143/42
[2025-07-26 13:45] VITALS: BP 136/53
[2025-07-26 14:00] VITALS: BP 138/55
[2025-07-26 14:07] LABS: Glucose - Point of Care 101 mg/dl (70-99)
[2025-07-26 14:10] VITALS: BP 122/47
[2025-07-26 14:25] VITALS: BP 122/46
== END 2025-07-26 15:32 | disposition home or self-care (01) ==
LOC: SDS 06:30
PROVIDERS: ATTENDING PHYSICIAN Urology; FAMILY PHYSICIAN Family Medicine
DX: N32.89 Other specified disorders of bladder (principal); N31.9 Neuromuscular dysfunction of bladder, unspecified; N20.1 Calculus of ureter; D41.4 Neoplasm of uncertain behavior of bladder
CPT/HCPCS: 52332; 36415; 74018; 76000; 80048; 82962; 85027; 87077; 87086; 87186; 88305; 88341; 88342; 93005; C2617; J0585

== ENCOUNTER 2025-08-06 12:28 | Outpatient (REF) | payer MEDICARE, SELFPAY | END 2025-08-06 23:59 | disposition home or self-care (01) | LOC: WOUND 12:28 | PROVIDERS: ATTENDING PHYSICIAN Surgery; FAMILY PHYSICIAN Family Medicine | DX: S31.109A Unspecified open wound of abdominal wall, unspecified quadrant without penetration into peritoneal cavity, initial encounter (principal); L89.322 Pressure ulcer of left buttock, stage 2; L89.313 Pressure ulcer of right buttock, stage 3; L89.153 Pressure ulcer of sacral region, stage 3; N18.4 Chronic kidney disease, stage 4 (severe); E11.29 Type 2 diabetes mellitus with other diabetic kidney complication; E66.01 Morbid (severe) obesity due to excess calories; E03.9 Hypothyroidism, unspecified; Z93.59 Other cystostomy status; X58.XXXA Exposure to other specified factors, initial encounter; R53.1 Weakness | CPT/HCPCS: 99204 ==

== ENCOUNTER 2025-08-20 08:41 | Outpatient (REF) | payer MEDICARE, SELFPAY | END 2025-08-20 23:59 | disposition home or self-care (01) | LOC: WOUND 08:41 | PROVIDERS: ATTENDING PHYSICIAN Registered Nurse; FAMILY PHYSICIAN Family Medicine | DX: S31.109A Unspecified open wound of abdominal wall, unspecified quadrant without penetration into peritoneal cavity, initial encounter (principal); L89.322 Pressure ulcer of left buttock, stage 2; L89.313 Pressure ulcer of right buttock, stage 3; L89.153 Pressure ulcer of sacral region, stage 3; R53.1 Weakness; N18.4 Chronic kidney disease, stage 4 (severe); E11.29 Type 2 diabetes mellitus with other diabetic kidney complication; Z93.59 Other cystostomy status; E66.01 Morbid (severe) obesity due to excess calories; E03.9 Hypothyroidism, unspecified; X58.XXXA Exposure to other specified factors, initial encounter; E11.22 Type 2 diabetes mellitus with diabetic chronic kidney disease | CPT/HCPCS: 99213 ==

== ENCOUNTER 2025-08-21 15:27 | Inpatient (IN) | payer MEDICARE, SELFPAY ==
[2025-08-21] VITALS (11 sets, daily range): BP systolic 128–146; BP diastolic 49–84; BMI 44.8
[2025-08-21 12:29] LABS: Hematocrit 33.1 % (37.0-47.0); Hemoglobin 10.5 g/dL (12.0-16.0); Mean Corp Hgb Conc. 31.7 g/dL (33.0-37.0); Mean Corpuscular Volume 99.1 fL (81.0-99.0); Nucleated Red Blood Cells % 0 %; Platelet Count 252 10^3/uL (130-400); Red Cell Dist. Width 14.6 % (11.5-14.5)
--- NOTE | 2025-08-21 12:37 | ED.GENMED ---
History of Present Illness
General
Chief Complaint: Abnormal Lab Value
Time Seen by Provider: 08/21/25 12:15
Nursing documentation reviewed up to this point in time: agreed with
History of Present Illness
History of Present Illness:
75-year-old female presents to the ER for further evaluation of elevated creatinine. Patient has a suprapubic catheter for long-term issues of urinary retention. She had a procedure 3-1/2 weeks ago for ureteral stenting and bladder Botox. Her
catheter was changed at that time. She says that since this new catheter has been placed she has been having leaking both from her urethra and around the catheter insertion site. She has been feeling generally unwell. She denies fevers. She
reports poor appetite, although she has recently started taking Ozempic. No vomiting. She has been trying to drink plenty of fluids but feels that her urine has been darker
Past History
Past History
ED Past Medical History: Cancer (Cervical), HTN, NIDDM and Hypothyroidism
ED Past Surgical History: Tonsilectomy
Social History
Tobacco: Non-smoker
Alcohol: None
Drug: None
Living: with family
Review of Systems
Review of Systems
Allergies reviewed?: Yes
Phy Exam
Physical Exam
Physical Exam:
Patient is awake, alert, obese, appears in no acute distress, head is NCAT, PERRL, EOMI mucous membranes moist, conjunctiva pink, heart regular rate and rhythm without murmurs or ectopy, lungs are clear to auscultation without wheezes rales or
rhonchi, no JVD, abdomen is soft and nontender on palpation, her suprapubic stoma is in her pannicular fold, there is scant dark urine in the bag, extremities with trace edema symmetric, GCS is 15
Course
Orders/Labs/Results
Orders:
Orders
08/21/25 12:13
CBC/With Diff [Complete Blood Count/With Diff] Urgent
CMP [Comprehensive Metabolic Panel] Urgent
08/21/25 12:16
US Renal Only W/O Bladder Urgent
Comment:
Reason For Exam: acute renal failure
08/21/25 12:42
Urinalysis Reflex To Culture Urgent
Date Specimen was Collected: 08/21/25
Time Specimen was Collected: 12:41
Urine Microscopic Reflex Cult Urgent
Urine Culture Urgent
CATRACHO Source: U
Specimen Description:
Date Specimen was Collected: 08/21/25
Time Specimen was Collected: 12:41
0.9% Sodium Chloride 500 ml [Nss] 500 ml IV BOLUS
08/21/25 14:04
CT Abd/pelvis Wo Iv Cont Urgent
Comment:
Reason For Exam: flank pain, recent stent exchange
08/21/25 14:11
Consult Urology [UROLOGY CONSULT] Urgent
Consulting Provider: Kamari Che
Was physician already notified: Yes
08/21/25 14:33
Ampicillin/Sulbactam 1.5 G [Unasyn] 1.5 gm 0.9% Sodium Chloride [Nss] 50 ml IV NOW
08/21/25 15:07
Admit/Transfer Patient As Directed
Co-Sign Provider:
Level of Care: Inpatient admission
Assign to:: Telemetry
Physician / Group: cornelius
Diagnosis: GISEL
Reason for Telemetry: Arrhythmia
Date to Stop Telemetry: 08/24/25
Time to Stop Telemetry: 11:00
Reason for Hospitalization: GISEL
Expected length of stay greater than two midnights?: Yes
ELOS- Estimated Length of Stay in days: 2
I certify the patient meets the requirements for IP care: Yes
PRN Pain Medication Management As Directed
May give lesser potent ordered pain med per pt: Yes
preference::
Protocol:: Medication orders for pain may be administered in a
manner that supports deferring to patient preference
when the pt is:
- Requesting an ordered lesser potent pain medication.
Least to most potent pain medications are defined
as: acetaminophen < NSAID < tramadol < opioids
(morphine, oxycodone, hydromorphone).
- Requesting a lesser dose of the same medication IF
ORDERED.
- Requesting a less intrusive route of administration
if both routes are prescribed by the provider (PO <
IV).
08/21/25 15:08
Code Status As Directed
Resuscitation Status: Full Code
08/24/25 11:00
DC Protocol for Telemetry ONCE
Abnormal Lab Results
08/21/25 08/21/25
12:13 12:42
WBC 11.6 H 10^3/uL
(4.8-10.8)
RBC 3.34 L 10^6/uL
(4.20-5.40)
Hgb 10.5 L g/dL
(12.0-16.0)
Hct 33.1 L %
(37.0-47.0)
MCV 99.1 H fL
(81.0-99.0)
MCH 31.4 H pg
(27.0-31.0)
MCHC 31.7 L g/dL
(33.0-37.0)
RDW 14.6 H %
(11.5-14.5)
Abs Immat Gran (auto) 0.3 H 10^3/uL
(0-0.05)
Absolute Neuts (auto) 10.0 H 10^3/uL
(1.4-6.5)
Absolute Lymphs (auto) 0.6 L 10^3/uL
(1.2-3.4)
Immature Gran % 2.6 H %
(0-0.5)
Neutrophils % 86.2 H %
(42.2-75.2)
Lymphocytes % 4.9 L %
(20.5-51.1)
Carbon Dioxide 19 L mmol/L
(22-30)
BUN 82 H mg/dl
(7-17)
Creatinine 5.6 H* mg/dL
(0.6-1.0)
Glucose 100 H mg/dl
(70-99)
Albumin 3.2 L g/dl
(3.5-5.0)
Ur Occult Blood Reflex 4+ A
(Negative)
Leukocyte Esterase Rfl 3+ A
(Negative)
Urine RBC 7-10 A /HPF
(0-2)
Urine WBC (Reflex) 60-70 A /HPF
(0-5)
Urine Bacteria (Reflex) Few A
(Negative)
Urine Albumin (Reflex) 3+ A
(Neg - Trace)
08/21/25 12:13
08/21/25 12:13
Mild elevation white blood count. Urinalysis is concerning for acute infection. BUN significantly elevated at 82 with creatinine 5.6, significant worsening compared to prior labs from from 07/16/2025
Vital Signs
Initial and Last Documented VS:
Initial Vital Signs
Temp Pulse Resp BP Pulse Ox
97.9 F 72 20 132/74 97
08/21/25 11:32 08/21/25 11:32 08/21/25 11:32 08/21/25 11:32 08/21/25 11:32
Last Documented Vital Signs
Temp Pulse Resp BP Pulse Ox
97.9 F 72 20 132/74 97
08/21/25 11:32 08/21/25 11:32 08/21/25 11:32 08/21/25 11:32 08/21/25 12:42
Procedures
Urinary Catheter
Procedure completed by: Myself
Type of urinary catheter: indwelling catheter (Suprapubic)
Catheter size (south k[place]): 20
Urine description: cloudy and yellow
Urine output (ml): 50
MDM/Problems Addressed
Differential Diagnosis Includes:
Differential diagnosis considered but not limited to Anderson catheter malfunction, acute kidney injury, dehydration, lecture light dyscrasia along with other etiologies considered
Chronic conditions affecting care:
Obesity, limited mobility, advanced age, COPD, chronic edema, hypertension, frequent urinary tract infections, diabetes
*Radiology
Radiology exam reviewed: radiology read reviewed (Severe bilateral pelvicalyceal dilatation)
*Pulse Oximetry
SaO2: 97
Oxygen Mode of Delivery: Room air
Patient hypoxic: no
*Critical Care Note
Total Time (30-74mins, 75-104mins- exclusive of procedures): Not Applicable
Update Note
Update Note:
I discussed with patient need for admission for further monitoring of creatinine along with hydration. She tolerated suprapubic catheter swap well. Will obtain renal ultrasound and discussed with hospitalist for admission once labs resulted.
Patient and daughter present at bedside agree with plan at current. Will order small IV fluid bolus.
5 late entry-once ultrasound result available, I reached out to the hospitalist to begin admission process. Patient is accepted for admission for further treatment of acute kidney injury with evidence for urinary tract infection. I also reached
out to on-call urologist, Dr. Che, to review patient history, recent procedure, current ultrasound results. CT of the abdomen and pelvis is ordered. Consult is placed for urology.
ED Attending Note
-
Portions of this chart may have been created with voice recognition software.� Occasional wrong word or��sound alike� substitutions may have occurred due to the inherent limitations of voice recognition software.
Discharge Plan
Departure
Patient Disposition: Admit
Date of Disposition: 08/21/25
Time of Disposition: 14:27
Presentation/result/management discussed w/ accepting MD/DO: Hospitalist
Discharge Problem:
GISEL (acute kidney injury), UTI (urinary tract infection), Bilateral hydronephrosis
Prescriptions:
No Action
ascorbic acid (vitamin C) [Vitamin C] 500 MG tablet
500 mg PO DAILY
biotin 10,000 MCG capsule
10,000 mcg PO DAILY
gabapentin 100 MG capsule
200 mg PO TID
metoprolol succinate 50 mg Tablet Extended Release 24 Hr
50 mg PO BID
nystatin 100,000 unit/gram Powder
1 applic TOPICAL DAILYPRN PRN (Reason: folds,groin)
ferrous sulfate 325 mg (65 mg iron) Tablet
325 mg PO DAILY
levothyroxine 100 mcg Tablet
100 mcg PO DAILY
calcitriol 0.25 mcg Capsule
0.25 mcg PO DAILY
sodium bicarbonate 325 mg tablet
325 mg PO BID
furosemide 40 mg Tablet
40 mg PO DAILY
Ozempic 0.25 mg or 0.5 mg (2 mg/3 mL) Pen Injector
0.5 mg SC FR
acetaminophen [Tylenol] 325 mg Tablet
650 mg PO Q6HPRN PRN (Reason: mild pain)
Visbiome 112.5 billion cell Capsule
1 cap PO DAILY
Interventions
Interventions:
*Risk Screen - Suicide Last Done: 08/21/25 11:30
*General Assessment Last Done: 08/21/25 11:32
*Neglect/Abuse Screening Last Done: 08/21/25 11:32
Discharge Date and Time
Print Language: KAZAKH
[2025-08-21 12:48] LABS: ALT (SGPT) 12 U/L (0-35); AST (SGOT) 14 U/L (14-36); Albumin 3.2 g/dl (3.5-5.0); Alkaline Phosphatase 58 U/L (38-126); Blood Urea Nitrogen 82 mg/dl (7-17); Calcium 8.8 mg/dl (8.4-10.2); Carbon Dioxide 19 mmol/L (22-30); Chloride 107 mmol/L (98-107); Estimated Creatinine Clearance 11 ml/min; Glucose 100 mg/dl (70-99); Potassium 4.2 mmol/L (3.5-5.1); Sodium 138 mmol/L (135-145); Total Protein 6.7 g/dl (6.3-8.2); eGFR 7.39
[2025-08-21 12:54] LABS: Urine Character Cloudy (Clear)
[2025-08-21 13:29] LABS: Urine Squamous Cell 0-2 /LPF (Few); Urine White Cell 60-70 /HPF (0-5)
[2025-08-21] MEDS: NSS 500 IV (13:37)
[2025-08-21] MEDS: UNASYN IV (15:12)
--- NOTE | 2025-08-21 15:13 | HPS.HSE ---
Addendum entered and electronically signed by Devonte Moran MD 08/21/25 21:37:
CT abdomen pelvis showed bilateral severe hydronephrosis despite indwelling ureteral stents, progressed as compared with previous examination. Also some very small air-fluid collection within the soft tissues along the course of the pericatheter,
small abscess is a consideration.
Urology was consulted and seems to think that bilateral hydronephrosis secondary to neurogenic bladder and suprapubic tube blockage. If creatinine does not improve with the now changed catheter then patient would potentially require percutaneous
nephrostomy tubes by interventional radiology. Keep n.p.o. past midnight.
Addendum entered and electronically signed by Devonte Moran MD 08/21/25 15:16:
Check CXR due to chronic shortness of breath.
Original Note:
Family Physician
-
Family Physician: Elsie Grubbs
Chief Complaint
-
elevated creatinine
History of Present Illness
75-year-old female past medical history of neurogenic bladder with suprapubic catheter, cervical cancer status post radiation/chemotherapy and brachytherapy, status post pelvic radiation complicated with chronic urinary tract obstruction with
history of bilateral ureteral stents, CKD, chronic HFpEF, hypertension, type 2 diabetes, hypothyroidism, normocytic anemia, shingles, postherpetic neuralgia, arthritis, gout, anxiety/depression, obesity, obstructive sleep apnea, presenting with
elevated creatinine. She had blood work performed by her hole filler Dr. Reid a few weeks ago that showed creatinine of 3 had follow-up blood work today showing creatinine of 5.
Patient has a suprapubic catheter for long-term history of urinary retention. She had procedure 3-1/2 weeks ago at which time she had ureteral stents exchanged and bladder Botox. Catheter was changed at that time. Since his new catheter has been
placed she has been having leaking from around the catheter site and decreased urine output. She has been feeling unwell. She denies fever or chills. She reports poor appetite recently started Ozempic. No vomiting. Has been drinking plenty of
fluids but urine has been darker.
She had some abdminal pain yesterday. Has been having loose stool/diarrhea recently which she thinks is from Ozempic.
She has chronic shortness of breath which is stable. Chronic lower extremity edema which is stable.
Denies smoking alcohol use.
Medical History
Past Medical History
Past Medical History: Reports Other (neurogenic bladder with suprapubic catheter, cervical cancer status post radiation/chemotherapy and brachytherapy, status post pelvic radiation complicated with chronic urinary tract obstruction with history of
bilateral ureteral stents, CKD, chronic HFpEF, hypertension, type 2 diabetes, hypothyroid)
Past Surgical History: Reports Other (Tonsilectomy)
Social History
Tobacco: Non-smoker
Alcohol: None
Drug: None
Family History
Family History: Not pertinent
Allergies / Home Medications
Allergies reflects when Allergies were last updated in [facility].
Home Medications with original date entered in [facility]
Allergy/Medication List:
Allergies
Allergy/AdvReac Type Severity Reaction Status Date / Time
No Known Allergies Allergy Verified 08/21/25 11:36
Home Medications
ascorbic acid (vitamin C) 500 mg tablet (Vitamin C) 500 mg PO DAILY Supplement 02/26/22
biotin 10,000 mcg capsule 10,000 mcg PO DAILY Supplement 02/26/22
gabapentin 100 mg capsule 200 mg PO TID Neurological Condition 02/26/22
metoprolol succinate 50 mg tablet,extended release 24 hr 50 mg PO BID Heart Disease/Condition 04/27/22
nystatin 100,000 unit/gram topical powder 1 applic topical DAILYPRN PRN folds,groin 04/27/22
ferrous sulfate 325 mg (65 mg iron) tablet 325 mg PO DAILY Supplement 07/30/22
levothyroxine 100 mcg tablet 100 mcg PO DAILY 08/18/24
calcitriol 0.25 mcg capsule 0.25 mcg PO DAILY 01/18/25
sodium bicarbonate 325 mg tablet 325 mg PO BID 01/18/25
furosemide 40 mg tablet 40 mg PO DAILY 07/17/25
semaglutide 0.25 mg or 0.5 mg (2 mg/3 mL) subcutaneous pen injector (Ozempic) 0.5 mg SC FR 07/17/25
Lactobac no.2-Bifidobac no.1-S. thermo 112.5 billion cell capsule (Visbiome) 1 cap PO DAILY 08/21/25
acetaminophen 325 mg tablet (Tylenol) 650 mg PO Q6HPRN PRN mild pain 08/21/25
Review of Systems
-
Constitutional: Reports No Symptoms
EENT: Reports No Symptoms
Respiratory: Reports See HPI
Cardiac: Reports No Symptoms
Abdomen/GI: Reports No Symptoms
: Reports No Symptoms
Musculoskeletal: Reports No Symptoms
Skin: Reports No Symptoms
Neurological: Reports No Symptoms
Endocrine: Reports No Symptoms
Hematologic/Lymphatic: Reports No Symptoms
Psych: Reports No Symptoms
Physical Exam
Vital Signs
Vital Signs
Temp Pulse Resp BP Pulse Ox
97.9 F 72 20 132/74 97
08/21/25 11:32 08/21/25 11:32 08/21/25 11:32 08/21/25 11:32 08/21/25 12:42
Physical Exam
General: Well Developed, Well Nourished and No Apparent Distress
HEENT: NormoCephalic, Moist mucous membranes and Atraumatic
Respiratory: Clear
Cardiac: S1/S2 and Regular Rhythm; No Murmur or Rub
GI: Soft, Non Tender, Non Distended and Normal Bowel Sounds; No Organomegaly
Rectal: Deferred by Provider
Musculoskeletal: No Clubbing, No Cyanosis and No Edema
Skin: No Rash
Neuro: Nonfocal/grossly intact
Laboratory Results
-
08/21/25 12:13
08/21/25 12:13
Laboratory Results
Total Bilirubin 0.3 mg/dl (0.2-1.3) 08/21/25 12:13
AST 14 U/L (14-36) 08/21/25 12:13
ALT 12 U/L (0-35) 08/21/25 12:13
Alkaline Phosphatase 58 U/L (38-126) 08/21/25 12:13
Data Reviewed
-
Lab Data: Labs Reviewed by me
Old Records: Reviewed
Impression/Plan
-
IMPRESSION:
PLAN:
# Severe GISEL on CKD possibly secondary to suprapubic catheter dysfunction versus rule out obstruction of either bilateral ureter stent
# Cervical cancer status post radiation/chemotherapy and brachytherapy complicated by bilateral ureteral obstruction status post bilateral ureteral stents
- Underwent bilateral ureteral stent exchange on 07/26 and bladder biopsy
- Renal ultrasound shows severe bilateral pelvicalyceal dilatation
- CT abdomen pelvis pending
- Continue gentle IV fluids
- Continue sodium bicarbonate, calcitriol
- Hold Lasix
# Suprapubic catheter associated UTI
- Prior urine cultures show Enterococcus, strep, Citrobacter, Pseudomonas in the urine
-Check urine culture
- Unasyn to treat frequent Enterococcus
# Leaky suprapubic catheter
#Neurogenic bladder with suprapubic catheter
-ER changed suprapubic catheter today
- Underwent Botox to bladder on 07/26
- Urology consulted
# Diarrhea from Ozempic
- Stop Ozempic
- Insulin sliding scale
Chronic HFpEF
- Hold Lasix
Essential hypertension
- Continue metoprolol
Type 2 diabetes
- Insulin sliding scale
Hypothyroidism
- Continue levothyroxine
Chronic normocytic anemia
- Stable
History of shingles/postherpetic neuralgia
- Continue gabapentin
Arthritis
Gout
Anxiety/depression
Obesity
Obstructive sleep apnea
Full code
DVT prophylaxis�heparin
Regular diet
[2025-08-21 17:09] LABS: Glucose - Point of Care 91 mg/dl (70-99)
--- NOTE | 2025-08-21 17:38 | W.PN.URO.CBU ---
Today's Communication / Plan
-
npo in am rexcheck creatinine may need irad to place perc tube
Assessment / Plan
-
cielo vargas repeat am creatinine if down then most likely dx is sp tube blockage but if still 5 then dx is blocked ureteral stents and this would be remedied by percutaneous tubes by irad
Diagnosis
-
Date of Service: August 21, 2025
-
Patient Diagnosis:cielo with creatinie 5 u from 2due toeither obstructed bilateral ureteral stents or due to reflux from blocked sp tube which is now corresctrly positioned
Post Op Day:
Subjective
-
feesl poorly but sp tube now repalced and working
Objective
-
Vital Signs
Temp Pulse Resp BP Pulse Ox
98.3 F 77 18 146/84 98
08/21/25 16:56 08/21/25 16:56 08/21/25 16:56 08/21/25 16:56 08/21/25 16:56
Laboratory Results
08/21/25 12:13
08/21/25 12:13
Review of Systems
-
Constitutional: Fatigue
Abdomen/GI: Abdominal Pain and Nausea
Physical Exam
-
General - well developed, well nourished, no acute distress
Chest - clear bilaterally
Abdomen - soft, non-tender, positive bowel sounds, no CVAT, no incisional pain or distention
Genitalia - normal
Rectal - normal
Skin - warm & dry with no rash
Neuro - AOx3, no motor deficits
Extremities - no clubbing, no cyanosis, no edema
Incision - clean, dry
Dressing - clean, dry, intact
Counseling
-
npo for b fast
Care Review
Data Reviewed
Discussed with: Hospitalist, Nursing and Family
CT Scan: Image Pers Reviewed
Ultrasound: Image Pers Reviewed
[2025-08-21] MEDS: NSS 1000 IV (18:23)
[2025-08-21] MEDS: TYLENOL 650 MG PO (18:29)
[2025-08-21] MEDS: NEURONTIN 300 MG PO (20:53)
[2025-08-21] MEDS: HEPARIN 5000 UNITS SC (20:53)
[2025-08-21] MEDS: SODIUM BICARBONATE 325 MG PO (20:54)
[2025-08-21] MEDS: TOPROL XL 50 MG PO (20:54)
[2025-08-21 21:36] LABS: Glucose - Point of Care 116 mg/dl (70-99)
[2025-08-22] VITALS (13 sets, daily range): BP systolic 69–155; BP diastolic 53–85
[2025-08-22] MEDS: SYNTHROID 100 MCG PO (05:47)
[2025-08-22 06:48] LABS: Hematocrit 28.4 % (37.0-47.0); Hemoglobin 9.3 g/dL (12.0-16.0); Mean Corp Hgb Conc. 32.7 g/dL (33.0-37.0); Mean Corpuscular Volume 100.0 fL (81.0-99.0); Nucleated Red Blood Cells % 0 %; Platelet Count 226 10^3/uL (130-400); Red Cell Dist. Width 14.6 % (11.5-14.5)
[2025-08-22 07:58] LABS: Glucose - Point of Care 81 mg/dl (70-99)
[2025-08-22 08:01] LABS: ALT (SGPT) < 10 U/L (0-35); AST (SGOT) 12 U/L (14-36); Albumin 2.6 g/dl (3.5-5.0); Alkaline Phosphatase 51 U/L (38-126); Blood Urea Nitrogen 76 mg/dl (7-17); Calcium 8.3 mg/dl (8.4-10.2); Carbon Dioxide 16 mmol/L (22-30); Chloride 113 mmol/L (98-107); Estimated Creatinine Clearance 12 ml/min; Glucose 83 mg/dl (70-99); Potassium 4.5 mmol/L (3.5-5.1); Sodium 139 mmol/L (135-145); Total Protein 5.8 g/dl (6.3-8.2); eGFR 8.26
[2025-08-22] MEDS: TOPROL XL 50 MG PO ×2 (08:22→20:26)
[2025-08-22] MEDS: VITAMIN C 500 MG PO (08:22)
[2025-08-22 08:24] LABS: Glycohemoglobin (HgbA1c) 6.0 % (4.0-5.9)
[2025-08-22] MEDS: ROCALTROL 0.25 MCG PO (08:24)
[2025-08-22] MEDS: NEURONTIN 300 MG PO (08:24)
[2025-08-22] MEDS: FEOSOL 325 MG PO (08:24)
[2025-08-22] MEDS: HEPARIN 5000 UNITS SC ×2 (08:25→20:26)
[2025-08-22] MEDS: VISBIOME 1 CAP PO (08:26)
[2025-08-22] MEDS: SODIUM BICARBONATE 325 MG PO ×2 (08:26→20:26)
[2025-08-22] MEDS: DESENEX/MITRAZOL/ZEASORB 1 APPLIC TOPICAL (08:27)
[2025-08-22] MEDS: NSS 1000 IV (08:55)
--- NOTE | 2025-08-22 09:11 | VNURNOTE ---
Addendum entered by Nelida Herrera RN 08/22/25 13:31:
[facility] Resumption referral placed in [facility].
Original Note:
Chart reviewed. Patient is current with [facility]. Will continue to follow hospital course and DC plans.
--- NOTE | 2025-08-22 09:44 | W.PN.HOSP.TC ---
Today's Communication/Plan
-
Interventional radiology for bilateral percutaneous nephrostomy placement
Alkalinized IV fluids
Empiric antibiotics
Follow BMP
Assessment / Plan
Assessment / Plan
Impression:
Acute kidney injury
CKD stage IIIb
Obstructive uropathy
Cervical CA status post chemoradiation and brachytherapy complicated with bilateral ureteral obstruction, status post suprapubic catheter and bilateral ureteral stents. Prior history of bilateral PCNs
Catheter associated UTI (suprapubic tube)
Diarrheal stool presentation
Other conditions
Chronic CHF preserved EF
Essential hypertension
Type 2 diabetes
Hypothyroidism on replacement
Chronic normocytic anemia
History of shingles/postherpetic neuralgia
Obesity due to excess of calories with BMI of 44
Gout
Obstructive sleep apnea.
Imaging
CT scan of the abdomen pelvis
IMPRESSION:
1. Bilateral severe hydronephrosis despite indwelling ureteral stents, progressed as compared with previous examination.
2. Indwelling suprapubic catheter. As above, there is a very small air and fluid collection within the soft tissues along the course of the catheter, small abscess is a consideration.
3. Unchanged right lower lobe nodules, benign.
4. Cholelithiasis.
5. Diverticulosis without diverticulitis.
6. Unchanged approximately 1.7 cm left adrenal nodule, most likely adenoma.
Plan
Acute kidney injury on CKD stage IIIb (baseline creatinine 1.9) secondary to obstructive uropathy.
Acute on chronic metabolic acidosis
Suprapubic catheter exchanged on admission in ED on 08/21.
CT scan as above.
Creatinine remains elevated at 5.1 indicative of possibly obstruction at the bilateral ureteral stents
Underwent bilateral ureteral stent exchange on 07/26 along with the bladder biopsy
Discussed with urology
Interventional radiology consult for bilateral PCN placement
Continue IV fluids changing to alkalinized
Hold oral diuretics
Follow renal output and BMP closely
Suprapubic catheter associated UTI
Prior urine culture noted with Enterococcus, strep, Citrobacter, Pseudomonas
Urine culture pending
Empiric antibiotics: Unasyn
Neurogenic bladder with suprapubic catheter in place
Leaky suprapubic catheter exchanged in the ED upon admission
Status post Botox to bladder on 07/26
Diarrheal stool.
Check for C. difficile if persistent.
Stop Ozempic.
Type 2 diabetes
Hemoglobin A1c 6.0
Recently on Ozempic held secondary to diarrheal stool.
Continue basal bolus protocol with serial Accu-Cheks.
Neuropathy. Continue gabapentin. Adjust dose to renal function
Chronic CHF preserved EF.
No evidence for volume overload.
Continue metoprolol
Hold Lasix acutely given GISEL
Chronic normocytic anemia with stable hemoglobin
Hypothyroidism on replacement
Obstructive sleep apnea
Anticipated Discharge: 24 - 48 hours
Subjective/Interval History
-
Date of Service: August 22, 2025
Objective Data
-
Labs:
Laboratory Results
08/22/25 08/22/25
06:19 09:31
WBC 9.1
Hgb 9.3 L
Hct 28.4 L
Plt Count 226
PT Pending
INR Pending
Sodium 139
Potassium 4.5
Chloride 113 H
Carbon Dioxide 16 L
BUN 76 H
Creatinine 5.1 H*
Glucose 83
Calcium 8.3 L
Total Bilirubin 0.3
AST 12 L
ALT < 10
Alkaline Phosphatase 51
Vital Signs:
Vital Signs
Temp Pulse Resp BP Pulse Ox
98.4 F 81 16 129/75 95
08/22/25 07:00 08/22/25 08:22 08/22/25 07:00 08/22/25 08:22 08/22/25 07:00
I&O
08/21/25 08/22/25 08/23/25
06:59 06:59 06:59
Intake Total 180 / 180
Output Total 1100 / 1100
Balance -920 / -920
Physical Exam
-
General: Well Developed and No Apparent Distress
HEENT: Normocephalic, Atraumatic and Moist Mucous Membranes
Respiratory: Clear to Auscultation
Cardiac: Regular Rhythm and S1/S2; Negative Murmur, Rub or Gallop
GI: Soft, Nontender, Nondistended and Normal Bowel Sounds; Negative Organomegaly
Rectal: Deferred by Provider
Musculoskeletal: No Clubbing, No Cyanosis and No Edema
Skin: Negative Rash
Neuro: Nonfocal/Grossly Intact
[2025-08-22 09:57] LABS: INR 1.19; PT 14.9 Sec (11.4-14.6)
--- NOTE | 2025-08-22 12:33 | W.PN.URO.CBU ---
Today's Communication / Plan
-
to irad
Assessment / Plan
-
cielo due to blocked stents suggest bilateral perc tubes an eventual; removal of metal stents
Diagnosis
-
Date of Service: August 22, 2025
-
Patient Diagnosis:
Post Op Day:
Patient Diagnosis:cielo with creatinie 5 up from 2 due to possibly obstructed bilateral ureteral stents or due to reflux from blocked sp tube which is now corresctrly positioned creatiine did not decline enpuhh with repositioig sp tube
Post Op Day:
Subjective
-
weak
Objective
-
Vital Signs
Temp Pulse Resp BP Pulse Ox
98.0 F 74 20 129/60 96
08/22/25 11:55 08/22/25 12:15 08/22/25 12:15 08/22/25 12:15 08/22/25 12:15
Intake and Output
08/21/25 08/22/25 08/23/25
06:59 06:59 06:59
Intake Total 180 / 180
Output Total 1100 / 1100
Balance -920 / -920
Intake:
Oral fluids 180 / 180
Output:
Urine, Anderson 1100 / 1100
Laboratory Results
08/22/25 06:19
08/22/25 06:19
Review of Systems
-
Constitutional: Fatigue
Physical Exam
-
General - well developed, well nourished, no acute distress
Chest - clear bilaterally
Abdomen - soft, non-tender, positive bowel sounds, no CVAT, no incisional pain or distention
Genitalia - normal
Rectal - normal
Skin - warm & dry with no rash
Neuro - AOx3, no motor deficits
Extremities - no clubbing, no cyanosis, no edema
Incision - clean, dry
Dressing - clean, dry, intact
Care Review
Data Reviewed
Discussed with: Hospitalist, Nursing and IRAD
[2025-08-22 13:12] LABS: Glucose - Point of Care 82 mg/dl (70-99)
[2025-08-22] MEDS: SODIUM BICARBONATE 1150 MEQ IV (13:22)
--- NOTE | 2025-08-22 14:34 | WOUNDNOTE ---
WO RN NOTE: Reviewed chart and met with patient and family. Patient is followed by [facility] and follows at the [facility] for stage 2 buttock wounds (last appointment was 08/20 which noted improvement). Patient has a stage 2 PI on left lower buttock and
right upper buttock, both POA (see worklist for description and measurement). Family has been using Triad ointment at home as recommended by [facility].The surrounding skin of buttocks has areas of MASD and chronic appearing discoloration. Daughter reports
patient has fecal and urinary incontinence and sits and sleeps in recliner. They have recently purchased a [employer] cushion. Patient ambulates with walker at home, but becomes SOB easily. Heels are intact, dry. Adhesive foam applied. Static air overlay
added to bed and properly inflated. Patient is on a turning schedule. Will confirm orders and update ANAYELI Teixeira. Will follow as needed.
--- NOTE | 2025-08-22 14:38 | CM ---
Patient seen at bedside with daughters Ofe & Apoorva
CM explained role
IA completed
dx: GISEL
IR today b/l nephrostomy placement
Lives alone in 1st floor condo, no steps
PLOF: Independent with walker
DME: Walker, shower chair, cane
Current with [facility], denies rehab
PCP: Elsie Grubbs
Pharmacy: [facility] [place]
PLAN: anticipate home with [facility] when stable
--- NOTE | 2025-08-22 15:18 | W.CON.NEPH ---
Consultation
-
Date/Time Consultation Requested: 08/22/2025 9 AM
Date/Time Consultation Performed: 08/22/2025 3 PM
Requesting Provider: Dr. Moran
Performing Provider: Dr. Reid
Reason for Consultation: GISEL
Medical History
-
Chief Complaint: GISEL
History of Present Illness:
Ms. Gurrola is a 74YOF with diabetes mellitus type 2 on Ozempic which has been stable, CKD 4 baseline creatinine around 2.2 which has been stable. She does have a suprapubic catheter as well as bilateral ureteral stents which had to be changed on a
periodic schedule. These were recently done by urology. However her creatinine as outpatient continue to rise up to 5.6 and she was sent to emergency room because she also did not look well according to her daughter. In the emergency room her
creatinine was 5.6 with acidosis. Imaging disclosed bilateral hydronephrosis. Given the complexity of her system bilateral percutaneous nephrostomy tubes were placed today. There has been brisk urine output. We are asked to assist with
management of her GISEL. She remains on sodium bicarbonate for metabolic acidosis which has been stable.
Past Medical History
cervical cancer with associated urinary obstruction s/p stents, chronic Kidney Disease, UTI, Hydronephrosis, Neurogenic Bladder, Chronic HFpEF, Hypertension, Type 2 Diabetes Mellitus, Hypothyroidism, Cervical Cancer Stage 3 status radiation and
chemotherapy, Colon Polyp, Family History of Cardiovascular Disease, Edema, Benign Cavernous Hemangioma, Shingles, Post-Herpetic Neuralgia, Arthritis, Gout, Leon Cyst, Anxiety, Depression, Morbid Obesity and SHANTEL suprapubic catheter
Past Medical History: Other
Past Surgical History: Other (Colonoscopy. Ureteral Stents placement. Suprapubic Tube)
Social History
Tobacco: Non-Smoker
Alcohol: Occasional
Drug: None
Living: With Family
Family History
Family History: Not Pertinent
Allergies / Home Medications
Allergy/AdvReac Type Severity Reaction Status Date / Time
No Known Allergies Allergy Verified 08/21/25 11:36
�Medication �Instructions �Recorded �Confirmed �Type
ascorbic acid (vitamin C) 500 mg 500 mg PO DAILY Supplement 02/26/22 08/21/25 History
tablet (Vitamin C)
biotin 10,000 mcg capsule 10,000 mcg PO DAILY Supplement 02/26/22 08/21/25 History
gabapentin 100 mg capsule 200 mg PO TID Neurological 02/26/22 08/21/25 History
Condition
metoprolol succinate 50 mg 50 mg PO BID Heart 04/27/22 08/21/25 History
tablet,extended release 24 hr Disease/Condition
nystatin 100,000 unit/gram topical 1 applic topical DAILYPRN PRN 04/27/22 08/21/25 History
powder folds,groin
ferrous sulfate 325 mg (65 mg 325 mg PO DAILY Supplement 07/30/22 08/21/25 History
iron) tablet
levothyroxine 100 mcg tablet 100 mcg PO DAILY 08/18/24 08/21/25 History
calcitriol 0.25 mcg capsule 0.25 mcg PO DAILY 01/18/25 08/21/25 History
sodium bicarbonate 325 mg tablet 325 mg PO BID 01/18/25 08/21/25 History
furosemide 40 mg tablet 40 mg PO DAILY 07/17/25 08/21/25 History
semaglutide 0.25 mg or 0.5 mg (2 0.5 mg SC FR 07/17/25 08/21/25 History
mg/3 mL) subcutaneous pen injector
(Ozempic)
Lactobac no.2-Bifidobac no.1-S. 1 cap PO DAILY 08/21/25 08/21/25 History
thermo 112.5 billion cell capsule
(Visbiome)
acetaminophen 325 mg tablet 650 mg PO Q6HPRN PRN mild pain 08/21/25 08/21/25 History
(Tylenol)
Review of Systems
-
Malaise
No chest pain or shortness of breath
All other systems: Negative unless noted
Physical Exam
Vital Signs
Vital Signs
Temp Pulse Resp BP Pulse Ox
97.4 F 72 18 135/55 95
08/22/25 13:07 08/22/25 13:07 08/22/25 13:07 08/22/25 13:07 08/22/25 13:07
Lab Results
WBC 9.1 10^3/uL (4.8-10.8) 08/22/25 06:19
RBC 2.84 10^6/uL (4.20-5.40) L 08/22/25 06:19
Hgb 9.3 g/dL (12.0-16.0) L 08/22/25 06:19
Hct 28.4 % (37.0-47.0) L 08/22/25 06:19
Plt Count 226 10^3/uL (130-400) 08/22/25 06:19
Sodium 139 mmol/L (135-145) 08/22/25 06:19
Potassium 4.5 mmol/L (3.5-5.1) 08/22/25 06:19
Chloride 113 mmol/L (98-107) H 08/22/25 06:19
Carbon Dioxide 16 mmol/L (22-30) L 08/22/25 06:19
BUN 76 mg/dl (7-17) H 08/22/25 06:19
Creatinine 5.1 mg/dL (0.6-1.0) H* 08/22/25 06:19
eGFR 8.26 08/22/25 06:19
Glucose 83 mg/dl (70-99) 08/22/25 06:19
Calcium 8.3 mg/dl (8.4-10.2) L 08/22/25 06:19
Albumin 2.6 g/dl (3.5-5.0) L 08/22/25 06:19
Laboratory Tests
07/16/25
10:01
Hgb 11.9 L
Carbon Dioxide 25
Creatinine 2.6 H
Physical Exam
Patient is awake alert oriented and in no distress. Mood and affect were pleasant, insight and judgment were good. Pupils are equal round and reactive to light, extraocular movements are intact, sclera were anicteric. Hearing was normal, ears and
nose are intact. Oropharynx was clear. Neck was supple with trachea midline and no thyromegaly. Heart was regular rate and rhythm without rubs. Lower extremities with 1+ edema. Lungs were clear to auscultation bilaterally and with normal
excursion. Abdomen was soft, nontender, with normal active bowel sounds, and no hepatosplenomegaly. Skin was without rash and with normal turgor. Bilateral percutaneous nephrostomy tubes
Data Reviewed
-
Radiology: Image Personally Visualized and interpreted (Chest x-ray 08/21/2025 by my reading elevated right hemidiaphragm, low lung volumes)
Labs: Labs Reviewed by me
Old Records: Reviewed
Assessment/Plan
-
Assessment:
GISEL
obstructive uropathy, s/p bilateral PCN
ureteral stents and SP catheter
anemia
HTN
DM2
HFpEF
metabolic acidosis
Plan:
follow BMP
GISEL likely obstructive in nature and PCNs should hopefully allow renal recovery
continue po bicarb
continue IVF
eventual stent removal
d/w daughter and pt
--- NOTE | 2025-08-22 16:11 | WOUNDNOTE ---
LEFT LOWER BUTTOCK STAGE 2
--- NOTE | 2025-08-22 16:12 | WOUNDNOTE ---
PICTURED LEFT LOWER BUTTOCK AND RIGHT UPPER BUTTOCK STAGE 2 PI POA
--- NOTE | 2025-08-22 16:13 | WOUNDNOTE ---
RIGHT UPPER BUTTOCK STAGE 2 PI
[2025-08-22] MEDS: UNASYN IV (16:32)
[2025-08-22 17:25] LABS: Glucose - Point of Care 107 mg/dl (70-99)
[2025-08-22] MEDS: NOVOLOG FLEXPEN-LOW RESISTANCE SC (18:01)
[2025-08-22 21:09] LABS: Glucose - Point of Care 133 mg/dl (70-99)
[2025-08-23 03:00] VITALS: BP 119/60
[2025-08-23] MEDS: SODIUM BICARBONATE 1150 MEQ IV (04:01)
[2025-08-23] MEDS: TYLENOL 650 MG PO ×3 (05:15→21:06)
[2025-08-23] MEDS: SYNTHROID 100 MCG PO (05:15)
[2025-08-23 06:34] VITALS: BP 142/56
[2025-08-23 07:50] LABS: Glucose - Point of Care 121 mg/dl (70-99)
--- NOTE | 2025-08-23 09:01 | W.PN.URO.CBU ---
Today's Communication / Plan
-
Trend renal function
Assessment / Plan
-
75F with chronic bilateral ureteral obstruction, neurogenic bladder
managed with indwelling metal ureteral stents
Admitted with GISEL, obstructive uropathy 3 weeks after metal stent exchange
- s/p bilateral percutaneous nephrostomy tube placement
- Trend renal function
- Maintain PCNs and suprapubic tube to gravity
- Plan for outpatient metal ureteral stent removal
Diagnosis
-
Date of Service: August 23, 2025
-
Patient Diagnosis:
Chronic bilateral ureteral obstruction
GISEL
Failure of indwelling metal ureteral stents
s/p b/l PCN placement 08/22
Subjective
-
no complaints
Objective
-
Vital Signs
Temp Pulse Resp BP Pulse Ox
99.0 F 86 23 142/56 94
08/23/25 06:34 08/23/25 06:34 08/23/25 06:34 08/23/25 06:34 08/23/25 06:34
Intake and Output
08/22/25 08/23/25 08/24/25
06:59 06:59 06:59
Intake Total 180 / 180 1740 / 1740
Output Total 1100 / 1100 4855 / 4855
Balance -920 / -920 -3115 / -3115
Intake:
Oral fluids 180 / 180 1740 / 1740
Output:
Urinary Drain Output (Total) 4255 / 4255
Left Nephrostomy 1974
Right Nephrostomy 2279 / 2279
Urine, Anderson 1100 / 1100
Suprapubic output 600 / 600
Laboratory Results
08/22/25 06:19
08/22/25 06:19
Physical Exam
-
General - well developed, well nourished, no acute distress
Chest - clear bilaterally
Abdomen - soft, non-tender
PCNs in place, pink urine
Skin - warm & dry with no rash
Neuro - AOx3, no motor deficits
Extremities - no clubbing, no cyanosis, no edema
Incision - clean, dry
Dressing - clean, dry, intact
[2025-08-23] MEDS: NOVOLOG FLEXPEN-LOW RESISTANCE SC ×3 (11:14→21:52)
[2025-08-23] MEDS: ROCALTROL 0.25 MCG PO (11:14)
[2025-08-23] MEDS: NEURONTIN 300 MG PO (11:15)
[2025-08-23] MEDS: VISBIOME 1 CAP PO (11:15)
[2025-08-23] MEDS: TOPROL XL 50 MG PO ×2 (11:16→19:55)
[2025-08-23] MEDS: FEOSOL 325 MG PO (11:16)
[2025-08-23] MEDS: VITAMIN C 500 MG PO (11:17)
[2025-08-23 11:18] LABS: Hematocrit 31.1 % (37.0-47.0); Hemoglobin 10.2 g/dL (12.0-16.0); Mean Corp Hgb Conc. 32.8 g/dL (33.0-37.0); Mean Corpuscular Volume 97.5 fL (81.0-99.0); Nucleated Red Blood Cells % 0 %; Platelet Count 201 10^3/uL (130-400); Red Cell Dist. Width 14.5 % (11.5-14.5)
[2025-08-23] MEDS: SODIUM BICARBONATE 325 MG PO ×2 (11:18→19:55)
[2025-08-23] MEDS: HEPARIN 5000 UNITS SC ×2 (11:20→19:55)
[2025-08-23 11:59] LABS: Blood Urea Nitrogen 63 mg/dl (7-17); Calcium 8.3 mg/dl (8.4-10.2); Carbon Dioxide 25 mmol/L (22-30); Chloride 107 mmol/L (98-107); Estimated Creatinine Clearance 16 ml/min; Glucose 124 mg/dl (70-99); Potassium 3.7 mmol/L (3.5-5.1); Sodium 138 mmol/L (135-145); eGFR 11.06
[2025-08-23 12:05] LABS: Glucose - Point of Care 133 mg/dl (70-99)
[2025-08-23 13:18] VITALS: BP 153/69
--- NOTE | 2025-08-23 13:41 | W.PN.NEPH.PH ---
Today's Communication / Plan
-
IVF
Assessment/Plan
-
Assessment:
GISEL
obstructive uropathy, s/p bilateral PCN
ureteral stents and SP catheter
anemia
HTN
DM2
HFpEF
metabolic acidosis
Plan:
follow BMP
continue po bicarb
continue IVF change to 1/2NS
eventual stent removal
d/w daughter and pt
-
-
Date of Service: August 23, 2025
CC / HPI / ROS
-
Chief Complaint:
GISEL
History of Present Illness:
GISEL/Cr down to 4
s/p bilateral PCN 08/22
K normal
acidosis resolved
Review of Systems:
no CP/SOB
Labs
-
Labs:
WBC 12.3 10^3/uL (4.8-10.8) H 08/23/25 11:11
RBC 3.19 10^6/uL (4.20-5.40) L 08/23/25 11:11
Hgb 10.2 g/dL (12.0-16.0) L 08/23/25 11:11
Hct 31.1 % (37.0-47.0) L 08/23/25 11:11
Plt Count 201 10^3/uL (130-400) 08/23/25 11:11
Sodium 138 mmol/L (135-145) 08/23/25 11:11
Potassium 3.7 mmol/L (3.5-5.1) 08/23/25 11:11
Chloride 107 mmol/L (98-107) 08/23/25 11:11
Carbon Dioxide 25 mmol/L (22-30) 08/23/25 11:11
BUN 63 mg/dl (7-17) H 08/23/25 11:11
Creatinine 4.0 mg/dL (0.6-1.0) H 08/23/25 11:11
eGFR 11.06 08/23/25 11:11
Glucose 124 mg/dl (70-99) H 08/23/25 11:11
Calcium 8.3 mg/dl (8.4-10.2) L 08/23/25 11:11
Albumin 2.6 g/dl (3.5-5.0) L 08/22/25 06:19
Physical Exam
-
Vital Signs:
Vital Signs
Temp Pulse Resp BP Pulse Ox
98.4 F 80 24 153/69 93
08/23/25 13:18 08/23/25 13:18 08/23/25 13:18 08/23/25 13:18 08/23/25 13:18
Cardiovascular:: Regular rate and rhythm
Respiratory:: Bilateral: Coarse
Lung Excursion:: Normal
Abdomen:: Nontender and Soft
Bowel Sounds:: Normal
Extremity Edema:: +1: Bilateral:
[2025-08-23] MEDS: SODIUM BICARBONATE IV (14:40)
--- NOTE | 2025-08-23 14:40 | W.PN.HOSP.TC ---
Today's Communication/Plan
-
Follow renal output and BMP
IV fluids
Oral bicarbonate
Prednisone for gout
Assessment / Plan
Assessment / Plan
Impression:
Acute kidney injury
CKD stage IIIb
Obstructive uropathy
Cervical CA status post chemoradiation and brachytherapy complicated with bilateral ureteral obstruction, status post suprapubic catheter and bilateral ureteral stents. Prior history of bilateral PCNs
Catheter associated UTI (suprapubic tube)
Diarrheal stool presentation
Acute gouty arthritis of the left first metatarsal joint
Other conditions
Chronic CHF preserved EF
Essential hypertension
Type 2 diabetes
Hypothyroidism on replacement
Chronic normocytic anemia
History of shingles/postherpetic neuralgia
Obesity due to excess of calories with BMI of 44
Gout
Obstructive sleep apnea.
Imaging
CT scan of the abdomen pelvis
IMPRESSION:
1. Bilateral severe hydronephrosis despite indwelling ureteral stents, progressed as compared with previous examination.
2. Indwelling suprapubic catheter. As above, there is a very small air and fluid collection within the soft tissues along the course of the catheter, small abscess is a consideration.
3. Unchanged right lower lobe nodules, benign.
4. Cholelithiasis.
5. Diverticulosis without diverticulitis.
6. Unchanged approximately 1.7 cm left adrenal nodule, most likely adenoma.
Plan
Acute kidney injury on CKD stage IIIb (baseline creatinine 1.9) secondary to obstructive uropathy.
Acute on chronic metabolic acidosis
Suprapubic catheter exchanged on admission in ED on 08/21.
CT scan as above.
Creatinine remains elevated at 5.1 indicative of possibly obstruction at the bilateral ureteral stents
Underwent bilateral ureteral stent exchange on 07/26 along with the bladder biopsy
Discussed with urology
Status post bilateral PCN placement by [facility] on 08/22
Creatinine trending down
Continue IV fluids as per renal continue oral bicarb
Hold oral diuretics
Follow renal output and BMP closely
Suprapubic catheter associated UTI
Prior urine culture noted with Enterococcus, strep, Citrobacter, Pseudomonas
Urine culture pending
Empiric antibiotics: Unasyn
Neurogenic bladder with suprapubic catheter in place
Leaky suprapubic catheter exchanged in the ED upon admission
Status post Botox to bladder on 07/26
Diarrheal stool.
Check for C. difficile if persistent.
Stop Ozempic.
Acute gouty arthritis of the left first metatarsal.
Prednisone provided on 08/23. Follow response.
Limited options including colchicine and NSAIDs given GISEL/CKD
Type 2 diabetes
Hemoglobin A1c 6.0
Recently on Ozempic held secondary to diarrheal stool.
Continue basal bolus protocol with serial Accu-Cheks.
Neuropathy. Continue gabapentin. Adjust dose to renal function
Chronic CHF preserved EF.
No evidence for volume overload.
Continue metoprolol
Hold Lasix acutely given GISEL
Chronic normocytic anemia with stable hemoglobin
Hypothyroidism on replacement
Obstructive sleep apnea
Anticipated Discharge: > 48 hours
Subjective/Interval History
-
Date of Service: August 23, 2025
Objective Data
-
Labs:
Laboratory Results
08/23/25
11:11
WBC 12.3 H
Hgb 10.2 L
Hct 31.1 L
Plt Count 201
Sodium 138
Potassium 3.7
Chloride 107
Carbon Dioxide 25
BUN 63 H
Creatinine 4.0 H
Glucose 124 H
Calcium 8.3 L
Vital Signs:
Vital Signs
Temp Pulse Resp BP Pulse Ox
98.4 F 80 24 153/69 93
08/23/25 13:18 08/23/25 13:18 08/23/25 13:18 08/23/25 13:18 08/23/25 13:18
I&O
08/22/25 08/23/25 08/24/25
06:59 06:59 06:59
Intake Total 180 / 180 1740 / 1740 240 / 240
Output Total 1100 / 1100 4855 / 4855
Balance -920 / -920 -3115 / -3115 240 / 240
Physical Exam
-
General: Well Developed and No Apparent Distress
HEENT: Normocephalic, Atraumatic and Moist Mucous Membranes
Respiratory: Clear to Auscultation
Cardiac: Regular Rhythm and S1/S2; Negative Murmur, Rub or Gallop
GI: Soft, Nontender, Nondistended and Normal Bowel Sounds; Negative Organomegaly
Rectal: Deferred by Provider
Musculoskeletal: No Clubbing, No Cyanosis and No Edema
Skin: Negative Rash
Neuro: Nonfocal/Grossly Intact
[2025-08-23] MEDS: DELTASONE 20 MG PO (14:48)
[2025-08-23] MEDS: 0.45%NACL 1000 IV (14:52)
--- NOTE | 2025-08-23 15:09 | CM ---
Met with patient at bedside with daughter
Current with [facility]-referral in [facility]
tt hospitalist PT/OT orders
PLAN: home with [facility] when stable
[2025-08-23] MEDS: UNASYN IV (16:05)
[2025-08-23 17:15] LABS: Glucose - Point of Care 158 mg/dl (70-99)
[2025-08-23 19:12] VITALS: BP 124/66
[2025-08-23] MEDS: IMODIUM 2 MG PO (19:55)
[2025-08-23 20:51] LABS: Glucose - Point of Care 177 mg/dl (70-99)
[2025-08-23 22:43] VITALS: BP 108/56
[2025-08-24 03:05] VITALS: BP 101/51
[2025-08-24] MEDS: SYNTHROID 100 MCG PO (05:08)
[2025-08-24] MEDS: 0.45%NACL 1000 IV (05:11)
[2025-08-24 07:35] LABS: Glucose - Point of Care 130 mg/dl (70-99)
[2025-08-24 07:40] VITALS: BP 128/57
[2025-08-24 08:04] LABS: Blood Urea Nitrogen 50 mg/dl (7-17); Calcium 8.3 mg/dl (8.4-10.2); Carbon Dioxide 23 mmol/L (22-30); Chloride 107 mmol/L (98-107); Estimated Creatinine Clearance 18 ml/min; Glucose 124 mg/dl (70-99); Potassium 4.0 mmol/L (3.5-5.1); Sodium 138 mmol/L (135-145); eGFR 13.44
[2025-08-24 08:13] LABS: Hematocrit 29.7 % (37.0-47.0); Hemoglobin 9.6 g/dL (12.0-16.0); Mean Corp Hgb Conc. 32.3 g/dL (33.0-37.0); Mean Corpuscular Volume 98.7 fL (81.0-99.0); Nucleated Red Blood Cells % 0 %; Platelet Count 217 10^3/uL (130-400); Red Cell Dist. Width 14.6 % (11.5-14.5)
[2025-08-24] MEDS: NOVOLOG FLEXPEN-LOW RESISTANCE SC ×2 (08:14→17:05)
[2025-08-24] MEDS: SODIUM BICARBONATE 325 MG PO ×2 (08:16→20:49)
[2025-08-24] MEDS: FEOSOL 325 MG PO (08:16)
[2025-08-24] MEDS: TOPROL XL 50 MG PO ×2 (08:17→20:49)
[2025-08-24] MEDS: VITAMIN C 500 MG PO (08:17)
[2025-08-24] MEDS: NEURONTIN 300 MG PO (08:17)
[2025-08-24] MEDS: HEPARIN 5000 UNITS SC ×2 (08:17→20:46)
[2025-08-24] MEDS: ROCALTROL 0.25 MCG PO (08:17)
[2025-08-24] MEDS: VISBIOME 1 CAP PO (08:17)
--- NOTE | 2025-08-24 08:57 | W.PN.URO.CBU ---
Today's Communication / Plan
-
Maintain PCNs
Trend renal function
Cap SP Tube
Outpatient ureteral stent removal
Assessment / Plan
-
75F with chronic bilateral ureteral obstruction, neurogenic bladder
managed with indwelling metal ureteral stents
Admitted with GISEL, obstructive uropathy 3 weeks after metal stent exchange
- s/p bilateral percutaneous nephrostomy tube placement
- Trend renal function
- Maintain PCNs - discharge home with these in place
- Suprapubic tube with minimal output - can be capped and emptied twice daily to reduce burden of catheter bags at home
- Plan for outpatient metal ureteral stent removal
Diagnosis
-
Date of Service: August 24, 2025
-
Patient Diagnosis:
Post Op Day:
Patient Diagnosis:
Chronic bilateral ureteral obstruction
GISEL
Failure of indwelling metal ureteral stents
s/p b/l PCN placement 08/22
Subjective
-
tolerating PCNs
Objective
-
Vital Signs
Temp Pulse Resp BP Pulse Ox
97.7 F 77 16 128/57 94
08/24/25 07:40 08/24/25 08:17 08/24/25 07:40 08/24/25 08:17 08/24/25 07:40
Intake and Output
08/23/25 08/24/25 08/25/25
06:59 06:59 06:59
Intake Total 1740 / 1740 480 / 480
Output Total 4855 / 4855 3415 / 3415
Balance -3115 / -3115 -2935 / -2935
Intake:
Oral fluids 1740 / 1740 480 / 480
Output:
Urinary Drain Output (Total) 4255 / 4255 3315 / 3315
Left Nephrostomy 1974 1550 / 1550
Right Nephrostomy 2280 / 2280 1765 / 1765
Suprapubic output 600 / 600 100 / 100
Laboratory Results
08/24/25 06:48
08/24/25 06:48
Physical Exam
-
General - well developed, well nourished, no acute distress
Chest - clear bilaterally
Abdomen - soft, non-tender, positive bowel sounds, no CVAT, no incisional pain or distention
b/l PCNs in place, clear urine
[2025-08-24 09:31] VITALS: BP 165/69; PULSE 78; O2SAT 99
[2025-08-24 11:11] VITALS: BP 97/63
--- NOTE | 2025-08-24 11:42 | PN.CDI ---
CDI
- -
CDI:
Physician Documentation Request
Admit Date: 08/21/25 15:27
Dear Doctor Jeremy,
Patient admitted with GISEL.
08/22 Nursing skin assessment by TAYE, 'Stage 2 sacral pressure injury, POA.'
Physician documentation of the type and location of wounds is required for compliant documentation. Based on the above clinical findings and your assessment, please provide the following in your progress note:
Type (etiology) of ulcer/wound:
- Pressure (decubitus) ulcer
- Other
- Unable to determine
For a pressure ulcer, please also include the stage* of the ulcer:
- Stage 1 - Skin intact, non-blanchable redness
- Stage 2 - Partial thickness loss of dermis, includes intact or open blister
- Stage 3 - Full thickness tissue not including bone, tendon or muscle
- Stage 4 - Full thickness tissue loss, including exposed bone, tendon or muscle
- Unstageable - Full thickness loss in which the base of the ulcer is covered by slough (yellow, goel, cervantes, green or brown) and/or eschar (goel, brown or black) in the wound bed.
- Unable to determine
Use of terms such as suspected, likely, concern for, or probable (associated with a specific diagnosis that is being evaluated, monitored, or treated as if it exists) are acceptable and can be coded in the inpatient setting, when documented at the
time of discharge.
Thank you,
Nelida CLARK,RN,CCDS
CDI Specialist
Available via [place] text
Please use your independent medical judgment in providing your response.
*Source: National Pressure Ulcer Advisory Panel (NPUAP)
[2025-08-24 11:50] LABS: Glucose - Point of Care 176 mg/dl (70-99)
--- NOTE | 2025-08-24 11:51 | PN.CDI ---
CDI
- -
CDI:
Physician Documentation Request
Admit Date: 08/21/25 15:27
Dear ,
Patient admitted with GISEL.
08/23 PN, 'GISEL...Catheter associated UTI (suprapubic tube).'
08/22 Urine culture with Sunshine albicans
[facility] is using an adapted version of the 2016 Third International Consensus Definitions for Sepsis and Septic Shock (Sepsis-3) where sepsis is defined as life threatening organ dysfunction caused by a deregulated host response to infection.
Please reference the official [facility] Sepsis Recognition Tool for further information, which can be found on the Intranet under Infection Prevention.
Based on your medical judgment, can you please clarify whether or not the above organ dysfunction is related to or due to sepsis?
Sepsis due to catheter associated UTI with organ dysfunction of GISEL
Catheter associated UTI only
Catheter associated UTI ruled out
Other (please specify)
Use of terms such as suspected, likely, concern for, or probable (associated with a specific diagnosis that is being evaluated, monitored, or treated as if it exists) are acceptable and can be coded in the inpatient setting when documented at the
time of discharge.
Please use your independent medical judgement in providing your response.
Thank you,
Nelida CLARK,RN,CCDS
CDI Specialist
Available via [place] text
[2025-08-24] MEDS: NOVOLOG FLEXPEN-LOW RESISTANCE 1 UNITS SC (13:16)
[2025-08-24] MEDS: DIFLUCAN 200 MG 50 MG IV (15:03)
[2025-08-24] MEDS: DELTASONE 10 MG PO (15:03)
[2025-08-24 15:10] VITALS: BP 131/58
--- NOTE | 2025-08-24 15:17 | W.PN.HOSP.TC ---
Today's Communication/Plan
-
Monitor renal function
IV fluids as per renal
Single dose of Diflucan for possible fungal UTI
Additional dose of prednisone for left foot gouty arthritis
PT evaluation
Assessment / Plan
Assessment / Plan
Impression:
Acute kidney injury
CKD stage IIIb
Obstructive uropathy
Cervical CA status post chemoradiation and brachytherapy complicated with bilateral ureteral obstruction, status post suprapubic catheter and bilateral ureteral stents. Prior history of bilateral PCNs
Catheter associated UTI (suprapubic tube)
Diarrheal stool presentation
Acute gouty arthritis of the left first metatarsal joint
Steroid-induced leukocytosis
Other conditions
Chronic CHF preserved EF
Essential hypertension
Type 2 diabetes
Hypothyroidism on replacement
Chronic normocytic anemia
History of shingles/postherpetic neuralgia
Obesity due to excess of calories with BMI of 44
Gout
Obstructive sleep apnea.
Imaging
CT scan of the abdomen pelvis
IMPRESSION:
1. Bilateral severe hydronephrosis despite indwelling ureteral stents, progressed as compared with previous examination.
2. Indwelling suprapubic catheter. As above, there is a very small air and fluid collection within the soft tissues along the course of the catheter, small abscess is a consideration.
3. Unchanged right lower lobe nodules, benign.
4. Cholelithiasis.
5. Diverticulosis without diverticulitis.
6. Unchanged approximately 1.7 cm left adrenal nodule, most likely adenoma.
Plan
Acute kidney injury on CKD stage IIIb (baseline creatinine 1.9) secondary to obstructive uropathy.
Acute on chronic metabolic acidosis
Suprapubic catheter exchanged on admission in ED on 08/21.
CT scan as above.
Creatinine remains elevated at 5.1 indicative of obstruction at the bilateral ureteral stents
Underwent bilateral ureteral stent exchange on 07/26 along with the bladder biopsy
Status post bilateral PCN placement by [facility] on 08/22
Creatinine trending down to 3.4. Monitor for postobstructive diuresis
IV fluids as per renal
Hold oral diuretics
Follow renal output and BMP closely
Suprapubic catheter associated UTI
Urine culture with Sunshine species
Discontinue Unasyn on 08/24
Single dose of Diflucan provided on 08/24
Neurogenic bladder with suprapubic catheter in place
Leaky suprapubic catheter exchanged in the ED upon admission
Status post Botox to bladder on 07/26
Diarrheal stool.
Check for C. difficile if persistent.
Stop Ozempic.
Acute gouty arthritis of the left first metatarsal.
Improved with first dose of pred
Prednisone provided on 08/23, .. Follow response.
Limited options including colchicine and NSAIDs given GISEL/CKD
Type 2 diabetes
Hemoglobin A1c 6.0
Recently on Ozempic held secondary to diarrheal stool.
Continue basal bolus protocol with serial Accu-Cheks.
Neuropathy. Continue gabapentin. Adjust dose to renal function
Chronic CHF preserved EF.
No evidence for volume overload.
Continue metoprolol
Hold Lasix acutely given GISEL
Chronic normocytic anemia with stable hemoglobin
Hypothyroidism on replacement
Obstructive sleep apnea
Anticipated Discharge: 24 - 48 hours
Subjective/Interval History
-
Date of Service: August 24, 2025
Objective Data
-
Labs:
Laboratory Results
08/24/25
06:48
WBC 15.1 H
Hgb 9.6 L
Hct 29.7 L
Plt Count 217
Sodium 138
Potassium 4.0
Chloride 107
Carbon Dioxide 23
BUN 50 H
Creatinine 3.4 H
Glucose 124 H
Calcium 8.3 L
Vital Signs:
Vital Signs
Temp Pulse Resp BP Pulse Ox
98.0 F 76 19 131/58 97
08/24/25 15:10 08/24/25 15:10 08/24/25 15:10 08/24/25 15:10 08/24/25 15:10
I&O
08/23/25 08/24/25 08/25/25
06:59 06:59 06:59
Intake Total 1740 / 1740 480 / 480
Output Total 4855 / 4855 3415 / 3415
Balance -3115 / -3115 -2935 / -2935
--- NOTE | 2025-08-24 16:42 | W.PN.NEPH.PH ---
Today's Communication / Plan
-
d/c IVF and follow labs
Assessment/Plan
-
Assessment:
GISEL
obstructive uropathy, s/p bilateral PCN
ureteral stents and SP catheter
anemia
HTN
DM2
HFpEF
metabolic acidosis
Plan:
cr improving to 3.4
post obst polyuria improving
will d/c IVF and monitr labs
if cr cont to improve below 3 hopefully can d.c per renal
continue po bicarb
eventual stent removal per
gout left GT-s/p prednisone 2doses
d/w daughter and pt
-
-
Date of Service: August 24, 2025
CC / HPI / ROS
-
Chief Complaint:
GISEL
History of Present Illness:
GISEL/Cr down to 3.4
s/p bilateral PCN 08/22
K normal
acidosis resolved
Review of Systems:
no CP/SOB
feesl well
Labs
-
Labs:
WBC 15.1 10^3/uL (4.8-10.8) H 08/24/25 06:48
RBC 3.01 10^6/uL (4.20-5.40) L 08/24/25 06:48
Hgb 9.6 g/dL (12.0-16.0) L 08/24/25 06:48
Hct 29.7 % (37.0-47.0) L 08/24/25 06:48
Plt Count 217 10^3/uL (130-400) 08/24/25 06:48
Sodium 138 mmol/L (135-145) 08/24/25 06:48
Potassium 4.0 mmol/L (3.5-5.1) 08/24/25 06:48
Chloride 107 mmol/L (98-107) 12/05/25 06:48
Carbon Dioxide 23 mmol/L (22-30) 08/24/25 06:48
BUN 50 mg/dl (7-17) H 08/24/25 06:48
Creatinine 3.4 mg/dL (0.6-1.0) H 08/24/25 06:48
eGFR 13.44 08/24/25 06:48
Glucose 124 mg/dl (70-99) H 08/24/25 06:48
Calcium 8.3 mg/dl (8.4-10.2) L 08/24/25 06:48
Albumin 2.6 g/dl (3.5-5.0) L 08/22/25 06:19
Physical Exam
-
Vital Signs:
Vital Signs
Temp Pulse Resp BP Pulse Ox
98.0 F 76 19 131/58 97
08/24/25 15:10 08/24/25 15:10 08/24/25 15:10 08/24/25 15:10 08/24/25 15:10
Cardiovascular:: Regular rate and rhythm
Respiratory:: Bilateral: CTA (decreased)
Lung Excursion:: Normal
Abdomen:: Nontender and Soft
Bowel Sounds:: Normal
Extremity Edema:: +1: Bilateral: (trace in feet)
Anderson Catheter: No
[2025-08-24 17:01] LABS: Glucose - Point of Care 114 mg/dl (70-99)
[2025-08-24] MEDS: 0.45%NACL IV (17:06)
[2025-08-24 21:12] LABS: Glucose - Point of Care 146 mg/dl (70-99)
[2025-08-24 22:34] VITALS: BP 144/68
[2025-08-25] MEDS: SYNTHROID 100 MCG PO (06:26)
--- NOTE | 2025-08-25 07:32 | W.PN.HOSP.TC ---
Today's Communication/Plan
-
Discharge today
Assessment / Plan
Assessment / Plan
Physical Exam
General: Well Developed and No Apparent Distress
HEENT: Normocephalic, Atraumatic and Moist Mucous Membranes
Respiratory: Clear to Auscultation
Cardiac: Regular Rhythm and S1/S2
GI: Soft, Nontender, Nondistended and Normal Bowel Sounds
Musculoskeletal: No Cyanosis and No Edema
Skin: Warm. Dry.
Neuro: Nonfocal/Grossly Intact
Impression:
Acute kidney injury
CKD stage IIIb
Chronic bilateral ureteral obstruction, neurogenic bladder managed with indwelling metal ureteral stents admitted this hospitalization with acute kidney injury, obstructive uropathy 3 weeks after metal stent exchange - status post bilateral
percutaneous nephrostomy tube placement
Obstructive uropathy
Cervical CA status post chemoradiation and brachytherapy complicated with bilateral ureteral obstruction, status post suprapubic catheter and bilateral ureteral stents. Prior history of bilateral PCNs
Catheter associated UTI (suprapubic tube)
Diarrheal stool presentation
Possible Fungal UTI status post single dose of Diflucan
Acute gouty arthritis of the left first metatarsal joint - IMPROVED SIGNIFICANTLY
Steroid-induced leukocytosis
Other conditions
Chronic CHF preserved EF
Essential hypertension
Type 2 diabetes
Hypothyroidism on replacement
Chronic normocytic anemia
History of shingles/postherpetic neuralgia
Obesity due to excess of calories with BMI of 44
Gout
Obstructive sleep apnea.
Stage 2 sacral pressure injury, POA
Imaging
CT scan of the abdomen pelvis
IMPRESSION:
1. Bilateral severe hydronephrosis despite indwelling ureteral stents, progressed as compared with previous examination.
2. Indwelling suprapubic catheter. As above, there is a very small air and fluid collection within the soft tissues along the course of the catheter, small abscess is a consideration.
3. Unchanged right lower lobe nodules, benign.
4. Cholelithiasis.
5. Diverticulosis without diverticulitis.
6. Unchanged approximately 1.7 cm left adrenal nodule, most likely adenoma.
Plan
Acute kidney injury on CKD stage IIIb (baseline creatinine 1.9) secondary to obstructive uropathy.
Acute on chronic metabolic acidosis
Suprapubic catheter exchanged on admission in ED on 08/21.
Suprapubic tube - can be capped and emptied twice daily to reduce burden of catheter bags at home
CT scan as above.
Underwent bilateral ureteral stent exchange on 07/26 along with the bladder biopsy
Status post bilateral PCN placement by [facility] on 08/22
Creatinine trended down to 2.9.
Postobstructive diuresis improving off IV fluids
IV fluids as per renal
Hold oral diuretics
Continue PO Bicarb
Recheck BMP outpatient in 3 to 4 days
Outpatient follow-up with urology and Dr. Reid of nephrology
I communicated (via [place] [employer]) with dye reel operator Dr. Cosme and she confirmed that patient is okay for discharge today, from nephrology standpoint
Suprapubic catheter associated UTI
Urine culture with Sunshine species
Discontinue Unasyn on 08/24
Single dose of Diflucan provided on 08/24. Since patient had urologic procedure, need to do 4 more days of Diflucan 200 mg daily (not 400 mg daily given the low creatinine clearance) -- I confirmed this (via [place] [employer], on 08/25/25, with urologist
Dr. Ramirez) who recommended total of 5 days of Diflucan in this scenario
Patient without any UTI related symptoms as of 08/25/25
Neurogenic bladder with suprapubic catheter in place
Leaky suprapubic catheter exchanged in the ED upon admission
Status post Botox to bladder on 07/26
Diarrheal stool.
C. difficile negative
Stop Ozempic.
Acute gouty arthritis of the left first metatarsal.
Improved with first dose of pred
Prednisone provided on 08/23, .5. Patient has clinically improved.
Limited options including colchicine and NSAIDs given GISEL/CKD
Type 2 diabetes mellitus
Hemoglobin A1c 6.0
Recently on Ozempic held secondary to diarrheal stool.
Continue basal bolus protocol with serial Accu-Cheks.
Neuropathy. Continue gabapentin. Adjust dose to renal function
Chronic CHF preserved EF.
No evidence for volume overload.
Continue metoprolol
Hold Lasix acutely given GISEL
Chronic normocytic anemia with stable hemoglobin
Hypothyroidism on replacement
Obstructive sleep apnea
Stage 2 sacral pressure injury, POA
More than 30 minutes spent in discharge including
Final examination of the patient
Summarizing hospital stay
Instructions for continuing care to all relevant caregivers
Preparation of discharge records, prescriptions, and referral forms
Total time spent (in minutes): 39
Anticipated Discharge: Today
Subjective/Interval History
-
Date of Service: August 25, 2025
Patient was seen and examined. She reported feeling well, denied any new symptoms or complaints, she is looking forward to going home today.
Objective Data
-
Labs:
Laboratory Results
08/25/25
06:00
WBC Pending
Hgb Pending
Hct Pending
Plt Count Pending
Sodium Pending
Potassium Pending
Chloride Pending
Carbon Dioxide Pending
BUN Pending
Creatinine Pending
Glucose Pending
Calcium Pending
Vital Signs:
Vital Signs
Temp Pulse Resp BP Pulse Ox
97.6 F 77 16 144/68 92
08/24/25 22:34 08/24/25 22:34 08/24/25 22:34 08/24/25 22:34 08/24/25 22:34
I&O
08/24/25 08/25/25 08/26/25
06:59 06:59 06:59
Intake Total 480 / 480
Output Total 3415 / 3415 1385 / 1385
Balance -2935 / -2935 -1385 / -1385
[2025-08-25] MEDS: SODIUM BICARBONATE 325 MG PO (07:42)
[2025-08-25] MEDS: ROCALTROL 0.25 MCG PO (07:42)
[2025-08-25] MEDS: NEURONTIN 300 MG PO (07:42)
[2025-08-25] MEDS: FEOSOL 325 MG PO (07:43)
[2025-08-25] MEDS: VITAMIN C 500 MG PO (07:43)
[2025-08-25] MEDS: TOPROL XL 50 MG PO (07:44)
[2025-08-25] MEDS: VISBIOME 1 CAP PO (07:44)
[2025-08-25 07:46] VITALS: BP 146/63
[2025-08-25 07:47] LABS: Glucose - Point of Care 123 mg/dl (70-99)
[2025-08-25] MEDS: HEPARIN 5000 UNITS SC (07:48)
[2025-08-25] MEDS: NOVOLOG FLEXPEN-LOW RESISTANCE SC ×3 (07:53→16:53)
[2025-08-25 09:57] LABS: Hematocrit 30.2 % (37.0-47.0); Hemoglobin 9.6 g/dL (12.0-16.0); Mean Corp Hgb Conc. 31.8 g/dL (33.0-37.0); Mean Corpuscular Volume 100.7 fL (81.0-99.0); Nucleated Red Blood Cells % 0 %; Platelet Count 247 10^3/uL (130-400); Red Cell Dist. Width 14.5 % (11.5-14.5)
[2025-08-25 10:24] LABS: Blood Urea Nitrogen 46 mg/dl (7-17); Calcium 8.8 mg/dl (8.4-10.2); Carbon Dioxide 26 mmol/L (22-30); Chloride 108 mmol/L (98-107); Estimated Creatinine Clearance 22 ml/min; Glucose 115 mg/dl (70-99); Potassium 3.9 mmol/L (3.5-5.1); Sodium 138 mmol/L (135-145); eGFR 16.27
[2025-08-25 11:40] LABS: Glucose - Point of Care 107 mg/dl (70-99)
--- NOTE | 2025-08-25 12:48 | W.PN.NEPH.PH ---
Today's Communication / Plan
-
d/c plan
Assessment/Plan
-
Assessment:
GISEL
obstructive uropathy, s/p bilateral PCN
ureteral stents and SP catheter
anemia
HTN
DM2
HFpEF
metabolic acidosis
Plan:
cr improving to 2.9
post obst polyuria improving off IVF
continue po bicarb
eventual stent removal per
d/c plan per primary
BMP next week
f/u and Dr Reid
-
-
Date of Service: August 25, 2025
CC / HPI / ROS
-
Chief Complaint:
GISEL
History of Present Illness:
GISEL/Cr down to 2.9
s/p bilateral PCN 08/22, draining well
SPC capped per
K normal
acidosis resolved
Review of Systems:
no CP/SOB
feesl well
mild discomfort at PCN sites laying on bed
Labs
-
Labs:
WBC 11.2 10^3/uL (4.8-10.8) H 08/25/25 09:06
RBC 3.00 10^6/uL (4.20-5.40) L 08/25/25 09:06
Hgb 9.6 g/dL (12.0-16.0) L 08/25/25 09:06
Hct 30.2 % (37.0-47.0) L 08/25/25 09:06
Plt Count 247 10^3/uL (130-400) 08/25/25 09:06
Sodium 138 mmol/L (135-145) 08/25/25 09:06
Potassium 3.9 mmol/L (3.5-5.1) 08/25/25 09:06
Chloride 108 mmol/L (98-107) H 08/25/25 09:06
Carbon Dioxide 26 mmol/L (22-30) 08/25/25 09:06
BUN 46 mg/dl (7-17) H 08/25/25 09:06
Creatinine 2.9 mg/dL (0.6-1.0) H 08/25/25 09:06
eGFR 16.27 08/25/25 09:06
Glucose 115 mg/dl (70-99) H 08/25/25 09:06
Calcium 8.8 mg/dl (8.4-10.2) 08/25/25 09:06
Albumin 2.6 g/dl (3.5-5.0) L 08/22/25 06:19
Physical Exam
-
Vital Signs:
Vital Signs
Temp Pulse Resp BP Pulse Ox
97.8 F 69 16 146/63 94
08/25/25 07:46 08/25/25 07:46 08/25/25 07:46 08/25/25 07:46 08/25/25 09:00
Cardiovascular:: Regular rate and rhythm
Respiratory:: Bilateral: CTA (decreased)
Lung Excursion:: Normal
Abdomen:: Nontender and Soft
Bowel Sounds:: Normal
Extremity Edema:: +1: Bilateral: (trace in feet)
Anderson Catheter: No
--- NOTE | 2025-08-25 13:33 | PTCARENOTE ---
Pt nephrostomy tube site dressings changed this shift. No redness, drainage or warmth noted to sites. Cleansed with NSS and boarder foam applied.
--- NOTE | 2025-08-25 16:33 | CM ---
MD indicated pt ready for discharge.
Spoke with patient in room she said she was ready for discharge.
Her son Wayne will drive her home.
[facility] accepted patient in care port.
PLAN Home with [facility]
[2025-08-25 16:44] VITALS: BP 131/77
[2025-08-25 16:51] LABS: ALT (SGPT) 11 U/L (0-35); AST (SGOT) 11 U/L (14-36); Magnesium 1.4 mg/dl (1.6-2.3)
[2025-08-25 16:52] LABS: Glucose - Point of Care 137 mg/dl (70-99)
[2025-08-25] MEDS: KCL 20 MEQ PO (16:53)
--- NOTE | 2025-08-25 17:15 | W.PN.URO.CBU ---
Today's Communication / Plan
-
- Maintain PCNs - discharge home with these in place
- Suprapubic tube with minimal output - can be capped and emptied twice daily to reduce burden of catheter bags at home
- Plan for outpatient metal ureteral stent removal
Diflucan to complete 5 day course
Assessment / Plan
-
75F with chronic bilateral ureteral obstruction, neurogenic bladder
managed with indwelling metal ureteral stents
Admitted with GISEL, obstructive uropathy 3 weeks after metal stent exchange
- s/p bilateral percutaneous nephrostomy tube placement
Sunshine UTI
Diagnosis
-
Date of Service: August 25, 2025
-
Patient Diagnosis:
Chronic bilateral ureteral obstruction
GISEL
Failure of indwelling metal ureteral stents
s/p b/l PCN placement 08/22
Sunshine growing in urine
Objective
-
Vital Signs
Temp Pulse Resp BP Pulse Ox
97.8 F 82 20 131/77 98
08/25/25 16:44 08/25/25 16:44 08/25/25 16:44 08/25/25 16:44 08/25/25 16:44
Intake and Output
08/24/25 08/25/25 08/26/25
06:59 06:59 06:59
Intake Total 480 / 480
Output Total 3415 / 3415 1385 / 1385
Balance -2935 / -2935 -1385 / -1385
Intake:
Oral fluids 480 / 480
Output:
Urinary Drain Output (Total) 3315 / 3315 1355 / 1355
Left Nephrostomy 1550 / 1550 605 / 605
Right Nephrostomy 1765 / 1765 750 / 750
Suprapubic output 100 / 100 30 / 30
Laboratory Results
08/25/25 09:06
08/25/25 09:06
Physical Exam
-
General - well developed, well nourished, no acute distress
Chest - clear bilaterally
Abdomen - soft, non-tender, positive bowel sounds, no CVAT, no incisional pain or distention
Genitalia - normal
Rectal - normal
Skin - warm & dry with no rash
Neuro - AOx3, no motor deficits
Extremities - no clubbing, no cyanosis, no edema
Incision - clean, dry
Dressing - clean, dry, intact
Care Review
Data Reviewed
Discussed with: Other (Hospitalist)
[2025-08-25] MEDS: DIFLUCAN 200 MG PO (18:23)
[2025-08-25] MEDS: MAGNESIUM OXIDE 400 MG PO (18:23)
== END 2025-08-25 19:11 | disposition home health service (06) | DRG 683 ==
LOC: 3 WEST ACU 15:27
PROVIDERS: Internal Medicine; Radiology Vascular & Interventional Radiology; ADMITTING PHYSICIAN Hospitalist; ATTENDING PHYSICIAN Hospitalist; CONSULT PHYSICIAN Specialist; EMERGENCY PHYSICIAN Emergency Medicine; FAMILY PHYSICIAN Family Medicine
PROC: 0T9030Z Drainage of Right Kidney with Drainage Device, Percutaneous Approach (ICD-10-PCS; 2025-08-22)
PROC: 0T9130Z Drainage of Left Kidney with Drainage Device, Percutaneous Approach (ICD-10-PCS; 2025-08-22)
DX: N17.9 Acute kidney failure, unspecified (principal); E87.20 Acidosis, unspecified; T83.518A Infection and inflammatory reaction due to other urinary catheter, initial encounter; Z68.41 Body mass index [BMI] 40.0-44.9, adult; I13.0 Hypertensive heart and chronic kidney disease with heart failure and stage 1 through stage 4 chronic kidney disease, or unspecified chronic kidney disease; I50.32 Chronic diastolic (congestive) heart failure; N13.6 Pyonephrosis; Y84.6 Urinary catheterization as the cause of abnormal reaction of the patient, or of later complication, without mention of misadventure at the time of the procedure; Y73.2 Prosthetic and other implants, materials and accessory gastroenterology and urology devices associated with adverse incidents; N18.32 Chronic kidney disease, stage 3b; N31.9 Neuromuscular dysfunction of bladder, unspecified; D64.9 Anemia, unspecified; E03.9 Hypothyroidism, unspecified; E11.22 Type 2 diabetes mellitus with diabetic chronic kidney disease; E66.01 Morbid (severe) obesity due to excess calories; F32.A Depression, unspecified; F41.9 Anxiety disorder, unspecified; G47.33 Obstructive sleep apnea (adult) (pediatric); M10.9 Gout, unspecified; L89.152 Pressure ulcer of sacral region, stage 2; M19.90 Unspecified osteoarthritis, unspecified site; Z92.3 Personal history of irradiation; Z79.899 Other long term (current) drug therapy; Z85.41 Personal history of malignant neoplasm of cervix uteri
CPT/HCPCS: 50432; 51702; 71046; 74176; 76775; 80048; 80053; 81003; 81015; 82962; 83036; 83735; 84450; 84460; 85025; 85610; 87086; 87324; 87449; 93005; 96365; 97162; 97167; 97530; 97535; 99152; 99153; 99285; C1729; C1769

== ENCOUNTER 2025-09-03 11:12 | Outpatient (REF) | payer MEDICARE, SELFPAY | END 2025-09-03 23:59 | disposition home or self-care (01) | LOC: WOUND 11:12 | PROVIDERS: ATTENDING PHYSICIAN Registered Nurse; FAMILY PHYSICIAN Family Medicine | DX: S31.109A Unspecified open wound of abdominal wall, unspecified quadrant without penetration into peritoneal cavity, initial encounter (principal); L89.322 Pressure ulcer of left buttock, stage 2; L89.313 Pressure ulcer of right buttock, stage 3; L89.153 Pressure ulcer of sacral region, stage 3; R53.1 Weakness; N18.4 Chronic kidney disease, stage 4 (severe); E11.29 Type 2 diabetes mellitus with other diabetic kidney complication; Z93.59 Other cystostomy status; E66.01 Morbid (severe) obesity due to excess calories; E03.9 Hypothyroidism, unspecified; X58.XXXA Exposure to other specified factors, initial encounter | CPT/HCPCS: 99213 ==

== ENCOUNTER 2025-09-17 11:09 | Outpatient (REF) | payer MEDICARE, SELFPAY | END 2025-09-17 23:59 | disposition home or self-care (01) | LOC: WOUND 11:09 | PROVIDERS: ATTENDING PHYSICIAN Registered Nurse; FAMILY PHYSICIAN Family Medicine | DX: S31.109A Unspecified open wound of abdominal wall, unspecified quadrant without penetration into peritoneal cavity, initial encounter (principal); L89.322 Pressure ulcer of left buttock, stage 2; L89.313 Pressure ulcer of right buttock, stage 3; L89.153 Pressure ulcer of sacral region, stage 3; R53.1 Weakness; N18.4 Chronic kidney disease, stage 4 (severe); E11.29 Type 2 diabetes mellitus with other diabetic kidney complication; Z93.59 Other cystostomy status; E66.01 Morbid (severe) obesity due to excess calories; E03.9 Hypothyroidism, unspecified; E11.22 Type 2 diabetes mellitus with diabetic chronic kidney disease; X58.XXXA Exposure to other specified factors, initial encounter | CPT/HCPCS: 99213 ==